=== PATIENT | male | born 1955 | race Caucasian/White ===

== ENCOUNTER 2017-09-15 08:00 | Day surgery (SDC) | payer OTHER ==
[2017-09-11 13:42] VITALS: BMI 31.3
[2017-09-15 08:29] VITALS: TEMP 97.1
[2017-09-15] MEDS: LACTATED RINGERS 1,000 ML IV SCH ×2 (08:34→08:38)
[2017-09-15] MEDS ORDERED: LIDOCAINE 1% 20 ML VIAL (10MG/ML) FOR IV START INTRADERMA ONE (08:38)
[2017-09-15] MEDS ORDERED: PROPOFOL 10 MG/ML 20 ML VIAL IV ONE (08:39)
[2017-09-15] MEDS ORDERED: LIDOCAINE 1% INJ 10MG/ML (20 ML MDV) ONE (08:39)
[2017-09-15 08:40] LABS: Glucose,Whole Blood 114 mg/dL (75-99)
--- NOTE | 2017-09-15 09:02 | P.PCN ---
Date of Procedure: 09/15/17 Procedure(s) Performed: Procedure: Esophagogastroduodenoscopy and biopsy. Preoperative diagnosis: Dysphagia. Postoperative diagnosis: 1. No obvious hiatal hernia or any evidence of esophagitis or complicated reflux disease. 2. Mild gastritis and minimal duodenitis. 3. Multiple biopsies obtained from the duodenum, antrum and esophagus. Preparation sedation: Was provided by anesthesia. Brief clinical history: The patient is a 61-year-old male who I have evaluated in the office regarding esophageal dysphagia that has been going on for sometime. He describes difficulties with solid and dry food that is not progressive. This had been going on for a long time. Denied reflux symptoms. He, apparently, lost 20 pounds over the last year or so. This evaluation is to assess for esophagitis or complicated reflux disease. Procedure: With the patient on his left lateral decubitus position and after informed consent and adequate sedation, I passed the Olympus-GIF 160 video upper endoscope through the cricopharyngeus down the esophagus. GE junction was around 43 cm from the incisors and there was no definite hiatal hernia. The esophagus did not show any obvious esophagitis or any strictures or [place]' s esophagus. The endoscope was then passed into the stomach which was insufflated with air and inspected in detail including the retroflex view in the cardia. There was some mottling and erythema in the antrum and few scattered small erosions but no ulcers. Pyloric channel did not show any ulcers. Duodenal bulb, post bulbar area and descending duodenum showed minimal erythema. I obtained biopsies from the duodenum, antrum and esophagus then the endoscope was withdrawn. The patient tolerated the procedure well. Plan: The patient was reassured. Will await biopsy results. It is possible that this could be dysphagia secondary to motility disorder. We could consider further evaluation based on his course and especially if there is nutritional compromise. He will follow up with you as planned and will keep you updated on his progress.
[2017-09-15 10:31] VITALS: BP 120/78
[2017-09-15 11:36] VITALS: RESP 16
[2017-09-15 11:48] VITALS: PULSE 83
== END 2017-09-15 14:35 | disposition home or self-care (01) ==
LOC: ORWHC2ENDO 08:00
DX: K29.70 Gastritis, unspecified, without bleeding (principal); K29.80 Duodenitis without bleeding; E11.9 Type 2 diabetes mellitus without complications; E78.5 Hyperlipidemia, unspecified; I10 Essential (primary) hypertension; M19.90 Unspecified osteoarthritis, unspecified site; G47.33 Obstructive sleep apnea (adult) (pediatric); J44.9 Chronic obstructive pulmonary disease, unspecified; F41.9 Anxiety disorder, unspecified; F17.200 Nicotine dependence, unspecified, uncomplicated; Z99.81 Dependence on supplemental oxygen; Z88.0 Allergy status to penicillin; Z79.84 Long term (current) use of oral hypoglycemic drugs; Z79.899 Other long term (current) drug therapy
CPT/HCPCS: 43239; 88305; 88342; J2001; J2704

== ENCOUNTER 2019-05-22 00:14 | Emergency (ER) | payer MEDICARE ==
--- NOTE | 2019-05-22 00:35 | ED ---
Extremity Problem HPI - General Chief complaint: Extremity Problem,Nontraumatic Stated complaint: Infection Rt Elbow Time Seen by Provider: 05/22/19 00:28 Source: patient, RN notes reviewed, old records reviewed Mode of arrival: wheelchair Limitations: no limitations - History of Present Illness Initial comments: This is a 63-year-old male the ER for evaluation. Patient does say for evaluation of right elbow swelling and pain. Significant swelling of right elbow. Patient states he has history of this, both elbows are significantly swollen at all times, he does have abrasions to right elbow. Patient denies fever or redness of arm. Patient denies any other complaints. MD Complaint: extremity pain, extremity swelling, joint pain (Right elbow pain and swelling) -: hour(s) Location: right, elbow History of Same: Yes Severity scale (1-10): 7 Quality: aching Consistency: constant Improves with: nothing Worsens with: nothing Associated Symptoms: denies other symptoms - Related Data Home Medications Medication Instructions Recorded Confirmed Atorvastatin [Lipitor] 80 mg PO HS 09/11/17 05/22/19 Citalopram Hydrobromide [CeleXA] 20 mg PO DAILY 09/11/17 05/22/19 Furosemide [Lasix] 20 mg PO DAILY 09/11/17 05/22/19 Lisinopril [Zestril] 2.5 mg PO DAILY 09/11/17 05/22/19 metFORMIN HCL [Glucophage] 500 mg PO BID 09/11/17 05/22/19 Allergies Allergy/AdvReac Type Severity Reaction Status Date / Time Penicillins Allergy Anaphylaxis Verified 09/15/17 08:10 Review of Systems ROS Statement: Those systems with pertinent positive or pertinent negative responses have been documented in the HPI. ROS Other: All systems not noted in ROS Statement are negative. Past Medical History Past Medical History: COPD, Diabetes Mellitus, Hyperlipidemia, Hypertension, Osteoarthritis (OA), Sleep Apnea/CPAP/BIPAP Additional Past Medical History / Comment(s): C PAP, BLOOD IN STOOL ,RETAINS FLUID IN AM OF PROCEDURE History of Any Multi-Drug Resistant Organisms: None Reported Past Surgical History: Appendectomy Additional Past Surgical History / Comment(s): CATARACT SURGERY WITH LENS IMPLANT-BILATERAL,EXPLORATORY LAPAROTOMY,AORTIC ANEURYSM REPAIR Past Anesthesia/Blood Transfusion Reactions: No Reported Reaction Past Psychological History: Anxiety Smoking Status: Current every day smoker Past Alcohol Use History: None Reported Past Drug Use History: Marijuana - Past Family History Mother Family Medical History: Cancer Additional Family Medical History / Comment(s): LUNG CANCER Father Family Medical History: Cancer Additional Family Medical History / Comment(s): LUNG CANCER General Exam Limitations: no limitations Course Vital Signs 05/22/19 00:19 Temperature 98.1 F Pulse Rate 87 Respiratory 20 Rate Blood Pressure 117/65 O2 Sat by Pulse 85 L Oximetry - Reevaluation(s) Reevaluation #1: 05/22/19 01:02 Medical record reviewed Reevaluation #2: 05/22/19 01:02 Bursa is drained Without incident Procedures - Bursa Procedures Consent Obtained: verbal consent Indications: R/O septic bursitis, R/O gouty bursitis, aspiration/injection Side of Body: right Site of Procedure: olecranon bursa XRAY Obtained: none Antisepsis Used: Povidone-Iodine1% Fluid Type: clear, cloudy Lidocaine Added to Medication: No Patient Tolerated Procedure: well Complications: none Medical Decision Making - Medical Decision Making 63 male the ER for evaluation significant right upper and bursitis bursitis is drained here in the ER, patient will be placed on antibiotics prophylactically, we'll obtain cultures of elbow aspirate fluid. Patient follow-up with Dr. Bush in for further management Disposition Clinical Impression: Olecranon bursitis, right elbow Disposition: HOME SELF-CARE Condition: Good Instructions (If sedation given, give patient instructions): Elbow Bursitis (ED) Is patient prescribed a controlled substance at d/c from ED?: No Referrals: Tenzin Beltrán MD [Primary Care Provider] - 1-2 days
[2019-05-22] MEDS ORDERED: SULFAMETHOX-TMP 800-160MG 1 EACH TAB PO STA (01:00)
[2019-05-22] MEDS ORDERED: CEPHALEXIN 500MG STARTER PACK 4 CAP BTL PO STA (01:00)
[2019-05-22] MEDS ORDERED: CEPHALEXIN 500 MG CAP PO STA (01:00)
[2019-05-22] MEDS ORDERED: SULFAMETH-TMP DS STARTER PACK 2 TAB BTL PO STA (01:00)
[2019-05-22] MEDS: IPRATROPIUM-ALBUTEROL 3 ML NEB INHALATION STA ×2 (01:21→10:41)
[2019-05-22 01:24] VITALS: PULSE 92
[2019-05-22 01:40] VITALS: BP 128/70; RESP 18; TEMP 98.3
[2019-05-22 02:07] LABS: Color,BF Yellow
[2019-05-22 02:08] LABS: Appearance,BF Cloudy; RBC, Body Fluid 2365 /uL
[2019-05-22 02:09] LABS: Nucleated Cells, Body Fluid 1720 /uL
[2019-05-22 02:19] LABS: Mononuclear WBC,Body Fluid 1 %; Polynuclear WBC,Body Fluid 99 %; Total Cells Counted,Body Fluid 100
== END 2019-05-22 01:40 | disposition home or self-care (01) ==
LOC: EC 00:14
DX: M70.21 Olecranon bursitis, right elbow (principal); E11.9 Type 2 diabetes mellitus without complications; E78.5 Hyperlipidemia, unspecified; I10 Essential (primary) hypertension; G47.30 Sleep apnea, unspecified; F41.9 Anxiety disorder, unspecified; F17.200 Nicotine dependence, unspecified, uncomplicated; Z79.84 Long term (current) use of oral hypoglycemic drugs; Z79.899 Other long term (current) drug therapy; Z88.0 Allergy status to penicillin
CPT/HCPCS: 20605; 87070; 87205; 89050; 94640; 99284

== ENCOUNTER 2019-05-22 09:47 | Inpatient (IN) | payer MEDICARE, BC ==
[2019-05-22] MEDS ORDERED: SODIUM CHLORIDE 0.9% 500 ML IV STA (10:13)
[2019-05-22] MEDS ORDERED: DEXAMETHASONE SOD PHOSPHATE 10 MG/ML 1 ML VIAL IV STA (10:14)
[2019-05-22] MEDS ORDERED: IPRATROPIUM-ALBUTEROL 3 ML NEB INHALATION STA (10:14)
--- NOTE | 2019-05-22 10:16 | ED ---
General Adult HPI - General Chief complaint: Fall Stated complaint: Fell Time Seen by Provider: 05/22/19 09:49 Source: patient, EMS Mode of arrival: EMS Limitations: no limitations - History of Present Illness Initial comments: Dictation was produced using [employer] dictation software. please excuse any grammatical, word or spelling errors. Chief Complaint: 63-year-old male found on the bathroom down today. History of Present Illness: 63-year-old male he has past medical history of COPD diabetes and heart failure. He is blind by EMS today for fluid in the bathroom. Patient was recently seen in the emergency department for inflamed bursa to the right elbow. Bursa was aspirated and sent for evaluation. Patient reports that upon leaving the emergency department he started to feel some chills. By time he got home he felt cold started putting on winter clothes. Patient remembers falling. Denies loss of consciousness however was unwitnessed. Patient reports shortness of breath. EMS reports that patient is hypoxic. Patient uses oxygen therapy at home. Does have a history of COPD and heart failure. Denies any cough. Denies any chest pain. The ROS documented in this emergency department record has been reviewed and confirmed by me. Those systems with pertinent positive or negative responses have been documented in the HPI. All other systems are other negative and/or noncontributory. PHYSICAL EXAM: General Impression: Alert and oriented x3, dyspneic HEENT: Normocephalic atraumatic, extra-ocular movements intact, pupils equal and reactive to light bilaterally, dry mucous membranes Cardiovascular: Heart regular rate and rhythm, S1&S2 audible, no murmurs, rubs or gallops Chest: Diffuse lung crackles Abdomen: Bowel sounds present, abdomen soft, non-tender, non-distended, no organomegaly Musculoskeletal: Pulses present and equal in all extremities, no peripheral edema Motor: no focal deficits noted Neurological: CN II-XII grossly intact, no focal motor or sensory deficits noted Skin: Intact with no visualized rashes, right elbow bandages clean dry and intact Psych: Normal affect and mood ED course: 63-year-old male presents with dyspnea and fall today. Vital signs upon arrival shows heart rate 131, 92% on 15 L nonrebreather, blood pressure 105 a 57, temperature 99.1. Laboratory evaluation obtained. CBC unremarkable. No leukocytosis. Coag panel unremarkable. Metabolic panel shows lactic acidosis 2.9. No Acidosis. Troponin 0.021 with a brain natruretic peptide of 2290. Patient doesn't have any old labs for comparison. Urinalysis shows 30 white blood cells. Repeat vi laney signs shows persistent tachycardia in the 150s. He still mildly hypoxic. At this point there multiple sources of possible infection including infected bursa, urine and even pulmonary. Clinical presentation consistent with sepsis. Discussed patient case Dr. Beltrán who is willing to accept patients care. Patient given broad-spectrum antibiotics. Patient also had a fall episode earlier today. No joint injuries noted. CT brain and C-spine is unremarkable. Plain films are negative. EKG interpretation: Ventricular rate 129, sinus tachycardia, IL interval 16, QS 136, QTC 427. No IL prolongation, no QTC prolongation, no ST or T-wave changes noted. No old EKG for comparison, right bundle branch block - Related Data Home Medications Medication Instructions Recorded Confirmed Atorvastatin [Lipitor] 80 mg PO HS 09/11/17 05/22/19 Furosemide [Lasix] 20 mg PO DAILY 09/11/17 05/22/19 Lisinopril [Zestril] 2.5 mg PO DAILY 09/11/17 05/22/19 metFORMIN HCL [Glucophage] 500 mg PO BID 09/11/17 05/22/19 Albuterol Inhaler [Ventolin Hfa 2 puff INHALATION RT-Q6H PRN 05/22/19 05/22/19 Inhaler] Aspirin EC [Ecotrin] 325 mg PO DAILY 05/22/19 05/22/19 Tiotropium [place] [Spiriva] 1 cap INHALATION RT-DAILY 05/22/19 05/22/19 Allergies Allergy/AdvReac Type Severity Reaction Status Date / Time Penicillins Allergy Anaphylaxis Verified 05/22/19 10:19 Review of Systems ROS Statement: Those systems with pertinent positive or pertinent negative responses have been documented in the HPI. ROS Other: All systems not noted in ROS Statement are negative. Past Medical History Past Medical History: COPD, Diabetes Mellitus, Hyperlipidemia, Hypertension, Osteoarthritis (OA), Sleep Apnea/CPAP/BIPAP Additional Past Medical History / Comment(s): C PAP, BLOOD IN STOOL ,RETAINS FLUID IN AM OF PROCEDURE History of Any Multi-Drug Resistant Organisms: None Reported Past Surgical History: Appendectomy Additional Past Surgical History / Comment(s): CATARACT SURGERY WITH LENS IMPLANT-BILATERAL,EXPLORATORY LAPAROTOMY,AORTIC ANEURYSM REPAIR Past Anesthesia/Blood Transfusion Reactions: No Reported Reaction Past Psychological History: Anxiety Smoking Status: Current every day smoker Past Alcohol Use History: None Reported Past Drug Use History: Marijuana - Past Family History Mother Family Medical History: Cancer Additional Family Medical History / Comment(s): LUNG CANCER Father Family Medical History: Cancer Additional Family Medical History / Comment(s): LUNG CANCER General Exam Limitations: no limitations Course Vital Signs 05/22/19 05/22/19 05/22/19 09:49 10:27 10:42 Temperature 99.1 F 102.5 F H Pulse Rate 131 H Respiratory 21 Rate Blood Pressure 105/57 O2 Sat by Pulse 92 L 93 L Oximetry 05/22/19 05/22/19 05/22/19 10:43 10:56 12:21 Temperature Pulse Rate 120 H 124 H 115 H Respiratory 21 Rate Blood Pressure 119/72 O2 Sat by Pulse 91 L Oximetry Medical Decision Making - Lab Data Result diagrams: 05/22/19 10:12 05/22/19 10:12 Lab Results 05/22/19 05/22/19 05/22/19 Range/Units 10:12 10:12 10:12 WBC 9.7 (3.8-10.6) k/uL RBC 5.49 (4.30-5.90) m/uL Hgb 15.5 (13.0-17.5) gm/dL Hct 47.1 (39.0-53.0) % MCV 85.8 (80.0-100.0) fL MCH 28.2 (25.0-35.0) pg MCHC 32.8 (31.0-37.0) g/dL RDW 16.5 H (11.5-15.5) % Plt Count 181 (150-450) k/uL Neutrophils % 89 % Lymphocytes % 4 % Monocytes % 5 % Eosinophils % 1 % Basophils % 0 % Neutrophils # 8.6 H (1.3-7.7) k/uL Lymphocytes # 0.4 L (1.0-4.8) k/uL Monocytes # 0.5 (0-1.0) k/uL Eosinophils # 0.1 (0-0.7) k/uL Basophils # 0.0 (0-0.2) k/uL Anisocytosis Slight PT (9.0-12.0) sec INR (<1.2) Sodium 139 (137-145) mmol/L Potassium 4.3 (3.5-5.1) mmol/L Chloride 101 (98-107) mmol/L Carbon Dioxide 29 (22-30) mmol/L Anion Gap 9 mmol/L BUN 19 (9-20) mg/dL Creatinine 0.96 (0.66-1.25) mg/dL Est GFR (CKD-EPI)AfAm >90 (>60 ml/min/1.73 sqM) Est GFR (CKD-EPI)NonAf 83 (>60 ml/min/1.73 sqM) Glucose 154 H (74-99) mg/dL Plasma Lactic Acid Raza 2.9 H* (0.7-2.0) mmol/L Calcium 9.2 (8.4-10.2) mg/dL Magnesium 1.6 (1.6-2.3) mg/dL Total Bilirubin 1.1 (0.2-1.3) mg/dL AST 24 (17-59) U/L ALT 8 L (21-72) U/L Alkaline Phosphatase 63 (38-126) U/L Troponin I (0.000-0.034) ng/mL NT-Pro-B Natriuret Pep pg/mL Total Protein 7.9 (6.3-8.2) g/dL Albumin 4.2 (3.5-5.0) g/dL Urine Color Urine Appearance (Clear) Urine pH (5.0-8.0) Ur Specific Post (1.001-1.035) Urine Protein (Negative) Urine Glucose (UA) (Negative) Urine Ketones (Negative) Urine Blood (Negative) Urine Nitrite (Negative) Urine Bilirubin (Negative) Urine Urobilinogen (<2.0) mg/dL Ur Leukocyte Esterase (Negative) Urine RBC (0-5) /hpf Urine WBC (0-5) /hpf Ur Squamous Epith Cells (0-4) /hpf Hyaline Casts (0-2) /lpf Urine Mucus (None) /hpf 05/22/19 05/22/19 05/22/19 Range/Units 10:12 10:12 10:12 WBC (3.8-10.6) k/uL RBC (4.30-5.90) m/uL Hgb (13.0-17.5) gm/dL Hct (39.0-53.0) % MCV (80.0-100.0) fL MCH (25.0-35.0) pg MCHC (31.0-37.0) g/dL RDW (11.5-15.5) % Plt Count (150-450) k/uL Neutrophils % % Lymphocytes % % Monocytes % % Eosinophils % % Basophils % % Neutrophils # (1.3-7.7) k/uL Lymphocytes # (1.0-4.8) k/uL Monocytes # (0-1.0) k/uL Eosinophils # (0-0.7) k/uL Basophils # (0-0.2) k/uL Anisocytosis PT 11.8 (9.0-12.0) sec INR 1.1 (<1.2) Sodium (137-145) mmol/L Potassium (3.5-5.1) mmol/L Chloride (98-107) mmol/L Carbon Dioxide (22-30) mmol/L Anion Gap mmol/L BUN (9-20) mg/dL Creatinine (0.66-1.25) mg/dL Est GFR (CKD-EPI)AfAm (>60 ml/min/1.73 sqM) Est GFR (CKD-EPI)NonAf (>60 ml/min/1.73 sqM) Glucose (74-99) mg/dL Plasma Lactic Acid Raza (0.7-2.0) mmol/L Calcium (8.4-10.2) mg/dL Magnesium (1.6-2.3) mg/dL Total Bilirubin (0.2-1.3) mg/dL AST (17-59) U/L ALT (21-72) U/L Alkaline Phosphatase (38-126) U/L Troponin I 0.021 (0.000-0.034) ng/mL NT-Pro-B Natriuret Pep 2290 pg/mL Total Protein (6.3-8.2) g/dL Albumin (3.5-5.0) g/dL Urine Color Urine Appearance (Clear) Urine pH (5.0-8.0) Ur Specific Post (1.001-1.035) Urine Protein (Negative) Urine Glucose (UA) (Negative) Urine Ketones (Negative) Urine Blood (Negative) Urine Nitrite (Negative) Urine Bilirubin (Negative) Urine Urobilinogen (<2.0) mg/dL Ur Leukocyte Esterase (Negative) Urine RBC (0-5) /hpf Urine WBC (0-5) /hpf Ur Squamous Epith Cells (0-4) /hpf Hyaline Casts (0-2) /lpf Urine Mucus (None) /hpf 05/22/19 Range/Units 10:35 WBC (3.8-10.6) k/uL RBC (4.30-5.90) m/uL Hgb (13.0-17.5) gm/dL Hct (39.0-53.0) % MCV (80.0-100.0) fL MCH (25.0-35.0) pg MCHC (31.0-37.0) g/dL RDW (11.5-15.5) % Plt Count (150-450) k/uL Neutrophils % % Lymphocytes % % Monocytes % % Eosinophils % % Basophils % % Neutrophils # (1.3-7.7) k/uL Lymphocytes # (1.0-4.8) k/uL Monocytes # (0-1.0) k/uL Eosinophils # (0-0.7) k/uL Basophils # (0-0.2) k/uL Anisocytosis PT (9.0-12.0) sec INR (<1.2) Sodium (137-145) mmol/L Potassium (3.5-5.1) mmol/L Chloride (98-107) mmol/L Carbon Dioxide (22-30) mmol/L Anion Gap mmol/L BUN (9-20) mg/dL Creatinine (0.66-1.25) mg/dL Est GFR (CKD-EPI)AfAm (>60 ml/min/1.73 sqM) Est GFR (CKD-EPI)NonAf (>60 ml/min/1.73 sqM) Glucose (74-99) mg/dL Plasma Lactic Acid Raza (0.7-2.0) mmol/L Calcium (8.4-10.2) mg/dL Magnesium (1.6-2.3) mg/dL Total Bilirubin (0.2-1.3) mg/dL AST (17-59) U/L ALT (21-72) U/L Alkaline Phosphatase (38-126) U/L Troponin I (0.000-0.034) ng/mL NT-Pro-B Natriuret Pep pg/mL Total Protein (6.3-8.2) g/dL Albumin (3.5-5.0) g/dL Urine Color Light Red Urine Appearance Cloudy (Clear) Urine pH 6.5 (5.0-8.0) Ur Specific Post 1.024 (1.001-1.035) Urine Protein 1+ H (Negative) Urine Glucose (UA) Negative (Negative) Urine Ketones Negative (Negative) Urine Blood Large H (Negative) Urine Nitrite Negative (Negative) Urine Bilirubin Negative (Negative) Urine Urobilinogen 2.0 (<2.0) mg/dL Ur Leukocyte Esterase Negative (Negative) Urine RBC >182 H (0-5) /hpf Urine WBC 30 H (0-5) /hpf Ur Squamous Epith Cells 1 (0-4) /hpf Hyaline Casts 6 H (0-2) /lpf Urine Mucus Occasional H (None) /hpf Disposition Clinical Impression: Fall, Sepsis Disposition: ADMITTED IP TO THIS HOSP Condition: Critical Referrals: Tenzin Beltrán MD [Primary Care Provider] - 1-2 days Decision Time: 13:02
[2019-05-22 10:31] LABS: Anisocytosis Slight; Basophils % (A) 0 %; Eosinophils # (A) 0.1 k/uL (0-0.7); Eosinophils % (A) 1 %; HCT 47.1 % (39.0-53.0); HGB 15.5 gm/dL (13.0-17.5); Lymphocytes # (A) 0.4 k/uL (1.0-4.8); Lymphocytes % (A) 4 %; MCH 28.2 pg (25.0-35.0); MCHC 32.8 g/dL (31.0-37.0); MCV 85.8 fL (80.0-100.0); Mean Platelet Volume 6.4; Monocytes # (A) 0.5 k/uL (0-1.0); Monocytes % (A) 5 %; Neutrophils # (A) 8.6 k/uL (1.3-7.7); Neutrophils % (A) 89 %; Platelet Count 181 k/uL (150-450); RBC 5.49 m/uL (4.30-5.90); RDW 16.5 % (11.5-15.5); WBC 9.7 k/uL (3.8-10.6)
[2019-05-22 10:36] LABS: ALT 8 U/L (21-72); AST 24 U/L (17-59); African American GFR (CKD) >90 (>60 ml/min/1.73 sqM); Albumin 4.2 g/dL (3.5-5.0); Alkaline Phosphatase 63 U/L (38-126); Anion Gap 9 mmol/L; Blood Urea Nitrogen 19 mg/dL (9-20); Calcium 9.2 mg/dL (8.4-10.2); Carbon Dioxide 29 mmol/L (22-30); Chloride 101 mmol/L (98-107); Glucose 154 mg/dL (74-99); INR 1.1 (<1.2); Magnesium 1.6 mg/dL (1.6-2.3); Non-African American GFR(CKD) 83 (>60 ml/min/1.73 sqM); Potassium 4.3 mmol/L (3.5-5.1); Prothrombin Time 11.8 sec (9.0-12.0); Sodium 139 mmol/L (137-145); Total Bilirubin 1.1 mg/dL (0.2-1.3); Total Protein 7.9 g/dL (6.3-8.2)
[2019-05-22] MEDS ORDERED: CEFEPIME 2 GM in SODIUM CHLORIDE 0.9% 100 ML IVPB STA (10:43)
[2019-05-22] MEDS ORDERED: VANCOMYCIN IV PER PHARMACY 1 EACH MISC MISCELLANE PRN (10:43)
[2019-05-22] MEDS ORDERED: VANCOMYCIN 1,500 MG in SODIUM CHLORIDE 0.9% 250 ML IVPB STA (10:48)
[2019-05-22 10:49] LABS: Appearance,Urine Cloudy (Clear); Bilirubin,Urine Negative (Negative); Blood,Urine Large (Negative); Color,Urine Light Red; Glucose,Urine (UA) Negative (Negative); Hyaline Casts,Urine 6 /lpf (0-2); Ketones,Urine Negative (Negative); Leukocyte Esterase,Urine Negative (Negative); Mucus,Urine Occasional /hpf; Nitrite,Urine Negative (Negative); PH, Urine 6.5 (5.0-8.0); Protein,Urine 1+ (Negative); RBC,Urine >182 /hpf (0-5); Specific Gravity,Urine 1.024 (1.001-1.035); Squamous Epithelial Cell,Urine 1 /hpf (0-4); WBC,Urine 30 /hpf (0-5)
[2019-05-22] MEDS ORDERED: ACETAMINOPHEN TAB 500 MG TAB PO STA (10:52)
--- NOTE | 2019-05-22 11:42 | CT ---
EXAMINATION TYPE: CT brain senia mcdaniels DATE OF EXAM: 05/22/2019 COMPARISON: NONE HISTORY: Fall CT DLP: 1442.8 mGycm Automated exposure control for dose reduction was used. TECHNIQUE: CT scan of the head and cervical spine are performed without contrast. FINDINGS: BRAIN: Central structures are midline. There is no evidence of hydrocephalus. No acute focal lesion, mass effect or midline shift is seen. I do not see evidence of intracranial blood. There is some mild periventricular white matter change compatible with chronic ischemic change. Visualized portions of the paranasal sinuses and mastoids are clear. The bony calvarium is intact. IMPRESSION: 1. NO ACUTE INTRACRANIAL ABNORMALITY. 2. MILD DEGENERATIVE CHANGE. CERVICAL SPINE: There are changes of bullous emphysema within the visualized portions of the lungs. The proximal arch is aneurysmal measuring 3.5 cm. The proximal descending thoracic aorta is also aneu rysmal measuring 3.6 cm. Prevertebral soft tissues are otherwise unremarkable. There is a minimal retrograde listhesis of C4 on C5. Alignment is otherwise normal. Atlantoaxial rela tionships are normal. There is degenerative disc disease and hypertrophic spondylosis at C5-6 and C6- 7. There is facet arthropathy on the left at C3-4. There is uncovertebral joint disease present at C3 -4. No definite protrusion is seen there is intervertebral foraminal narrowing on the left at C3-4 an d on the right at C5-6 and C6-7. No fractures are seen. IMPRESSION: 1. NO ACUTE OSSEOUS LESION. 2. DEGENERATIVE CHANGE. 3. INTERVERTEBRAL FORAMINAL NARROWING.
--- NOTE | 2019-05-22 11:43 | XR ---
EXAMINATION TYPE: XR chest 2V DATE OF EXAM: 05/22/2019 HISTORY: Pain. REFERENCE: None. FINDINGS: The lungs are overinflated. The heart is not enlarged. There are increased markings through out the chest which likely chronic. I do not see evidence of superimposed pneumonia or edema. IMPRESSION: COPD.
[2019-05-22] MEDS: SODIUM CHLORIDE 0.9% 1,000 ML IV SCH (13:28)
[2019-05-22] MEDS ORDERED: ALBUTEROL NEBULIZED 2.5 MG/3 ML INHALATION PRN (14:42)
--- NOTE | 2019-05-22 15:31 | HP ---
HISTORY AND PHYSICAL CHIEF COMPLAINT: Weakness and falling. HISTORY OF PRESENT ILLNESS: This is another admission for this 63-year-old white male. He came in disheveled. He has been in the office in the past for depression, hypertension and CHF. He was out of insurance so has not been coming in. He has been taking no medications. He came to the emergency room with an infection in the right elbow and was treated and released. It was probably an olecranon bursitis. He denies any focal neurologic deficits, syncope, chest pain, orthopnea, PND, etc. In the emergency room his laboratory studies revealed a white count of 16,500. Temperature was 102.5. Lactic acid was 2.9. BNP was 2200. REVIEW OF SYSTEMS: He denies any other complaints such as cough, chest pain, hemoptysis, sputum production, abdominal pain, nausea, vomiting, hematemesis, melena, hematochezia, jaundice, liver disease, renal failure, dysuria, frequency, nocturia, incontinence, diabetes, etc. Past medical history, family history, and personal and social histories reveal he is ALLERGIC TO PENICILLIN. He has not been on any medications. He does not smoke or drink by history. PHYSICAL EXAMINATION: Blood pressure 105/57 with a pulse of 124 and regular, respirations of 36 and temperature 102.5. In general he appeared to be dehydrated and disheveled. Lymph nodes were not enlarged. Head, ears, eyes, nose, mouth and throat were normal. Neck veins were not distended. Carotids were normal. Chest demonstrated scattered rales. Cardiac exam demonstrated sinus tachycardia with no murmurs or extra sounds. Abdomen was soft, nontender. Extremities were normal with minimal edema. Neurologically he was intact. IMPRESSION: 1. Bacterial septicemia secondary to olecranon bursitis of the right elbow. 2. Congestive heart failure. 3. Probable urinary tract infection. 4. Hematuria. 5. Depression. PLAN: 1. Bed rest. 2. IV fluids. 3. IV antibiotics. 4. Cultures. 5. Infectious Disease. 6. Start him back on Celexa 40 mg a day. 7. Echocardiogram. 8. Evaluate for hematuria. MMODL / IJN: [id number] /
[2019-05-22] MEDS: CITALOPRAM HYDROBROMIDE 20 MG TAB PO SCH (16:27)
[2019-05-22 17:15] LABS: Glucose,Whole Blood 298 mg/dL (75-99)
[2019-05-22] MEDS: INSULIN ASPART (NovoLOG) 100 UNIT/ML VIAL SQ SCH ×2 (17:50→21:02)
[2019-05-22] MEDS: VANCOMYCIN 1,500 MG in SODIUM CHLORIDE 0.9% 250 ML IVPB SCH (20:13)
[2019-05-22 20:50] LABS: Glucose,Whole Blood 204 mg/dL (75-99)
[2019-05-23] MEDS: SODIUM CHLORIDE 0.9% 1,000 ML IV SCH ×2 (05:21→17:46)
[2019-05-23 06:15] LABS: Glucose,Whole Blood 125 mg/dL (75-99)
[2019-05-23] MEDS: INSULIN ASPART (NovoLOG) 100 UNIT/ML VIAL SQ SCH ×4 (06:24→21:54)
[2019-05-23] MEDS: IPRATROPIUM 0.5 MG/2.5 ML NEBU INHALATION SCH ×4 (06:25→19:54)
[2019-05-23 07:15] LABS: African American GFR (CKD) >90 (>60 ml/min/1.73 sqM); Non-African American GFR(CKD) >90 (>60 ml/min/1.73 sqM)
[2019-05-23] MEDS: PANTOPRAZOLE 40 MG/10 ML VIAL IV SCH (08:33)
[2019-05-23] MEDS: CITALOPRAM HYDROBROMIDE 20 MG TAB PO SCH (08:33)
[2019-05-23] MEDS: LISINOPRIL 2.5 MG TAB PO SCH (08:33)
[2019-05-23] MEDS: VANCOMYCIN 1,500 MG in SODIUM CHLORIDE 0.9% 250 ML IVPB SCH ×2 (08:33→20:40)
[2019-05-23] MEDS: ASPIRIN 325 MG TAB PO SCH (08:33)
[2019-05-23] MEDS ORDERED: FUROSEMIDE 20 MG TAB PO SCH (09:00)
--- NOTE | 2019-05-23 12:01 | CONS ---
CONSULTATION Rajesh is a 63-year-old gentleman with history of diabetes, hypertension, dyslipidemia and COPD who is very noncompliant with his medications and has not been taking his Lasix or lisinopril for a while, came into hospital with infection involving the right elbow that was treated. He went home and apparently passed out at home and came back and his primary symptom was feeling weak, fatigued, tired. On his initial presentation, lactic acid was 2.9. BNP was elevated. His T-max was 102.5 and white cell count was elevated. I am consulted because of elevated BNP, which could be due to acute exacerbation of chronic diastolic heart failure or could be related to the underlying sepsis. He is currently on Lasix 20 mg daily. I am going to increase it to 20 mg IV b.i.d. I am also going to obtain a 2D echo to document his LV function. PAST MEDICAL HISTORY: Significant for COPD, [id number] diabetes, dyslipidemia. MEDICATIONS: Medications at home included Spiriva, aspirin, Ventolin, Glucophage, Zestril, Lasix, and Lipitor. ALLERGIC: ALLERGIC TO PENICILLIN. FAMILY HISTORY: Negative for premature coronary artery disease. SOCIAL HISTORY: Negative for smoking, ETOH abuse or drug abuse. REVIEW OF SYSTEMS: HEENT is unremarkable. CARDIAC as described above. RESPIRATORY negative. GI negative. Genitourinary negative. ALLERGY/IMMUNOLOGY: Negative. MUSCULOSKELETAL: Significant for arthritis. PSYCHOSOCIAL: Negative. ENDOCRINE: Negative. HEMATOLOGICAL: Negative. DERM: Negative. CONSTITUTIONAL: Negative. ONCOLOGICAL: Negative. Rest of the system review is not relevant. PHYSICAL EXAM: Comfortable at rest. Afebrile. Heart rate is 60 beats per minute. Blood pressure 117/59. Respirations 18. Chest exam reveals good air entry bilaterally. Heart exam reveals first and second heart sounds. No gallop. No murmur. Abdomen is soft. Exam of extremities reveals bilateral 1+ pitting edema. LAB: Showed that the hemoglobin is 15.5, platelet count is 181. BNP is elevated at 2290. Potassium is 4.3. EKG shows sinus rhythm with right bundle branch block. ASSESSMENT: 1. Acute exacerbation of chronic diastolic heart failure. 2. [id number] diabetes. 3. Chronic obstructive pulmonary disease. PLAN: I will treat the patient with Lasix. Continue the aspirin, insulin, Zestril that he is currently on. Obtain a 2D echo. MMODL / IJN: [id number] /
[2019-05-23 12:20] LABS: Glucose,Whole Blood 72 mg/dL (75-99)
--- NOTE | 2019-05-23 13:26 | P.CNOR ---
History of Present Illness - [facility] Consult date: 05/23/19 Consult reason: other History of present illness: Patient is a 63-year-old male who was recently admitted to [facility] with regards to possible exacerbation of CHF, sepsis, possible UTI and infection on the right elbow. He is on the cardiac stepdown unit at this time, he has multiple medical providers following him. We were consult in with regards to possible infection involving the right elbow. Patient was in the hospital early yesterday morning, they have performed an aspiration of the right olecranon bursa, he was sent home on oral antibiotics and cultures were sent of the fluid involving the right elbow. Patient returned later that evening with regards to chills and feeling of w eakness, he then was admitted under internal medicine for further workup. Patient was examined today at bedside, he is resting comfortably in chair. He notes minimal discomfort of the right elbow. Much improvement since his initial aspiration that was done yesterday. He still notes significant swelling in the area, also a scab present over the olecranon bursa. Currently patient denies any fevers or chills. Patient has no other orthopedic complaints time. Denies any previous surgery involving the right upper extremity. Cultures/Gram stain was reviewed from initial aspiration on 05/22/2019. Current reading states possible staph aureus. Review of Systems Constitutional: Reports as per HPI Past Medical History Past Medical History: COPD, Diabetes Mellitus, Hyperlipidemia, Hypertension, Osteoarthritis (OA), Sleep Apnea/CPAP/BIPAP Additional Past Medical History / Comment(s): C PAP, BLOOD IN STOOL ,RETAINS FLUID IN AM OF PROCEDURE History of Any Multi-Drug Resistant Organisms: None Reported Past Surgical History: Appendectomy Additional Past Surgical History / Comment(s): CATARACT SURGERY WITH LENS I MPLANT-BILATERAL,EXPLORATORY LAPAROTOMY,AORTIC ANEURYSM REPAIR Past Anesthesia/Blood Transfusion Reactions: No Reported Reaction Past Psychological History: Anxiety Smoking Status: Current every day smoker Past Alcohol Use History: None Reported Additional Past Alcohol Use History / Comment(s): STARTED SMOKING AT AGE 17 SMOKES 1PPD Past Drug Use History: Marijuana Additional Drug Use History / Comment(s): QUIT MARIJUANA DECEMBER 2016 - Past Family History Mother Family Medical History: Cancer Additional Family Medical History / Comment(s): LUNG CANCER Father Family Medical History: Cancer Additional Family Medical History / Comment(s): LUNG CANCER Medications and Allergies Home Medications Medication Instructions Recorded Confirmed Type Atorvastatin [Lipitor] 80 mg PO HS 09/11/17 05/22/19 History Furosemide [Lasix] 20 mg PO DAILY 09/11/17 05/22/19 History Lisinopril [Zestril] 2.5 mg PO DAILY 09/11/17 05/22/19 History metFORMIN HCL [Glucophage] 500 mg PO BID 09/11/17 05/22/19 History Albuterol Inhaler [Ventolin Hfa 2 puff INHALATION RT-Q6H PRN 05/22/19 05/22/19 History Inhaler] Aspirin EC [Ecotrin] 325 mg PO DAILY 05/22/19 05/22/19 History Tiotropium [place] [Spiriva] 1 cap INHALATION RT-DAILY 05/22/19 05/22/19 History Allergies Allergy/AdvReac Type Severity Reaction Status Date / Time Penicillins Allergy Anaphylaxis Verified 05/22/19 10:19 Physical Examination Right upper extremity: No obvious open lesions or sores present Obvious scab noted over the olecranon bursa, obvious soft tissue swelling and mild erythema surrounding the bursal area I'm unable to appreciate any effusion in the joint, he has full range of motion with regards to extension and flexion along with pronation and supination of the forearm There is no streaking erythema proximally or distal to the area Sensation to light touch throughout extremities intact, radial pulses 2+ Results - Labs Labs: Abnormal Lab Results - Last 24 Hours (Table) 05/22/19 05/22/19 05/23/19 Range/Units 16:49 20:49 06:05 POC Glucose (mg/dL) 298 H 204 H 125 H (75-99) mg/dL 05/23/19 Range/Units 11:57 POC Glucose (mg/dL) 72 L (75-99) mg/dL Microbiology - Last 24 Hours (Table) 05/22/19 10:35 Urine Culture - Preliminary Urine,Voided Gram Neg Bacilli H & H 05/22/19 Range/Units 10:12 Hgb 15.5 (13.0-17.5) gm/dL Hct 47.1 (39.0-53.0) % Coagulation 05/22/19 Range/Units 10:12 INR 1.1 (<1.2) Result Diagrams: 05/22/19 10:12 05/23/19 06:19 Assessment and Plan Plan: Imaging: I did place order for right elbow x-rays, we'll review the images Assessment: 1. Right elbow infected olecranon bursitis 2. Multiple medical comorbidities Plan: I was able to review the case, including physical exam findings with my attending Dr. Carbajal. We will like to proceed with surgical intervention, more specifically an incision and drainage with irrigation and debridement of the right olecranon bursa. We will like to proceed with this on 05/24/2019. We'll obtain further cultures at surgery. Risks and benefits of the procedure were discussed patient at bedside, he is in good understanding would like to proceed. Obtain consent Nothing by mouth after midnight Other medical specially recommendations Further recommendations to follow after surgery Time with Patient: Less than 30
--- NOTE | 2019-05-23 15:14 | XR ---
Right elbow HISTORY: Pain and swelling 3 views of the right elbow There is prominent soft tissue swelling present posterior to the elbow. Bone mineralization, joint sp aces and alignment are maintained. IMPRESSION: Correlate for olecranon bursitis.
--- NOTE | 2019-05-23 17:01 | P.CONS ---
History of Present Illness - Reason for Consult Consult date: 05/22/19 Sepsis Requesting physician: Tenzin Beltrán - Chief Complaint Right elbow pain swelling and redness x few days - History of Present Illness Patient is a 63-year-old male who was evaluated in the ER at [facility] yesterday for right elbow pain swelling and redness with apparently the patient has for couple of days, no history of any trauma, patient did have some dull aching pain in the left elbow area with intensity 5-6 out of 10 and no radiation, with associated swelling and redness with asymptomatic the patient was evaluated by the ER physician, patient did have attempted aspirate of the right elbow, and subsequently the patient was sent home the patient said when he got home he did have rigors and chills and did have a fall while he was in the bathroom did not recall if he lost any consciousness EMS was called and the patient was brought into [facility] for further evaluation of the same, patient did have a heater had cervical spine negative for any fracture chest x-ray negative for any pneumonia, patient was febrile with a temperature 10 2F tachycardic however his white count was normal at 9.[address] arted on vancomycin and infectious disease was consulted for further recommendation about antibiotic therapy Review of Systems CONSTITUTIONAL: Positive for weakness. Fever EYES: No complaint. ENT:No complaint. RESPIRATORY: No complaint. CARDIOVASCULAR: No complaint. GENITOURINARY: No complaint. GASTROINTESTINAL: No complaint. MUSCULOSKELETAL:As per history of present illness INTEGUMENTARY: No complaint. PSYCHOLOGICAL: No complaint. ENDOCRINE: No complaint. NEUROLOGIC: No complaint. Past Medical History Past Medical History: COPD, Diabetes Mellitus, Hyperlipidemia, Hypertension, Osteoarthritis (OA), Sleep Apnea/CPAP/BIPAP Additional Past Medical History / Comment(s): C PAP, BLOOD IN STOOL ,RETAINS FLUID IN AM OF PROCEDURE History of Any Multi-Drug Resistant Organisms: None Reported Past Surgical History: Appendectomy Additional Past Surgical History / Comment(s): CATARACT SURGERY WITH LENS IMPLANT-BILATERAL,EXPLORATORY LAPAROTOMY,AORTIC ANEURYSM REPAIR Past Anesthesia/Blood Transfusion Reactions: No Reported Reaction Past Psychological History: Anxiety Smoking Status: Current every day smoker Past Alcohol Use History: None Reported Additional Past Alcohol Use History / Comment(s): STARTED SMOKING AT AGE 17 SMOKES 1PPD Past Drug Use History: Marijuana Additional Drug Use History / Comment(s): QUIT MARIJUANA DECEMBER 2016 - Past Family History Mother Family Medical History: Cancer Additional Family Medical History / Comment(s): LUNG CANCER Father Family Medical History: Cancer Additional Family Medical History / Comment(s): LUNG CANCER Medications and Allergies Home Medications Medication Instructions Recorded Confirmed Type Atorvastatin [Lipitor] 80 mg PO HS 09/11/17 05/22/19 History Furosemide [Lasix] 20 mg PO DAILY 09/11/17 05/22/19 History Lisinopril [Zestril] 2.5 mg PO DAILY 09/11/17 05/22/19 History metFORMIN HCL [Glucophage] 500 mg PO BID 09/11/17 05/22/19 History Albuterol Inhaler [Ventolin Hfa 2 puff INHALATION RT-Q6H PRN 05/22/19 05/22/19 History Inhaler] Aspirin EC [Ecotrin] 325 mg PO DAILY 05/22/19 05/22/19 History Tiotropium [place] [Spiriva] 1 cap INHALATION RT-DAILY 05/22/19 05/22/19 History Allergies Allergy/AdvReac Type Severity Reaction Status Date / Time Penicillins Allergy Anaphylaxis Verified 05/22/19 10:19 Physical Exam Vitals: Vital Signs Temp Pulse Pulse Resp BP BP Pulse Ox 05/22/19 15:31 97.7 F 86 18 109/67 92 L 05/22/19 13:17 99.3 F 05/22/19 12:21 115 H 21 119/72 91 L 05/22/19 10:56 124 H 05/22/19 10:43 120 H 05/22/19 10:42 93 L 05/22/19 10:27 102.5 F H 05/22/19 09:49 99.1 F 131 H 21 105/57 92 L Intake and Output 05/22/19 05/22/19 05/22/19 06:59 14:59 22:59 Intake Total 80 Balance 80 Intake: Intake, IV Titration 80 Amount Sodium Chloride 0.9% 1, 80 000 ml @ 80 mls/hr IV . [id number] [facility] Rx#:[id number] Other: Weight 81.647 kg GENERAL DESCRIPTION: An elderly male up in the chair, no distress. No tachypnea or accessory muscle of respiration use. HEENT: Shows Pallor , no scleral icterus. Oral mucous membrane is dry. No pharyngeal erythema or thrush NECK: Trachea central, no thyromegaly. LUNGS: Unlabored breathing. Clear to auscultation anteriorly. No wheeze or crackle. HEART: S1, S2, regular rate and rhythm. No loud murmur ABDOMEN: Soft, no tenderness , guarding or rigidity, no organomegaly EXTREMITIES: Right elbow swelling redness minimal drainage tender to touch SKIN: No rash, no masses palpable. NEUROLOGICAL: The patient is awake, alert, oriented x3, mood and affect normal. Results CBC & Chem 7: 05/22/19 10:12 05/23/19 06:19 Labs: Abnormal Lab Results - Last 24 Hours (Table) 05/22/19 05/22/19 05/22/19 Range/Units 10:12 10:12 10:12 RDW 16.5 H (11.5-15.5) % Neutrophils # 8.6 H (1.3-7.7) k/uL Lymphocytes # 0.4 L (1.0-4.8) k/uL Glucose 154 H (74-99) mg/dL Plasma Lactic Acid Raza 2.9 H* (0.7-2.0) mmol/L ALT 8 L (21-72) U/L Urine Protein (Negative) Urine Blood (Negative) Urine RBC (0-5) /hpf Urine WBC (0-5) /hpf Hyaline Casts (0-2) /lpf Urine Mucus (None) /hpf 05/22/19 Range/Units 10:35 RDW (11.5-15.5) % Neutrophils # (1.3-7.7) k/uL Lymphocytes # (1.0-4.8) k/uL Glucose (74-99) mg/dL Plasma Lactic Acid Raza (0.7-2.0) mmol/L ALT (21-72) U/L Urine Protein 1+ H (Negative) Urine Blood Large H (Negative) Urine RBC >182 H (0-5) /hpf Urine WBC 30 H (0-5) /hpf Hyaline Casts 6 H (0-2) /lpf Urine Mucus Occasional H (None) /hpf Microbiology - Last 24 Hours (Table) 05/22/19 10:35 Urine Culture - Preliminary Urine,Voided Assessment and Plan Assessment: 1-patient in the hospital with sepsis in this patient who did have a fever tachycardia associated right elbow septic olecranon bursitis likely from gram- positive skin fatoumata suggests staph aureus with concern for possible community associated MRSA 2-patient with penicillin ALLERGY that will limit the number of antibiotic safe to use (1) Olecranon bursitis, right elbow Current Visit: Yes Status: Acute Code(s): M70.21 - OLECRANON BURSITIS, RIGHT ELBOW SNOMED Code(s): 358292684149111 (2) Sepsis Current Visit: Yes Status: Acute Code(s): A41.9 - SEPSIS, UNSPECIFIED ORGANISM SNOMED Code(s): 16706480 Plan: 1-Vancomycin pharmacy to dose target trough of 15 while watching his kidney function and Vanco trough closely 2-orthopedic evaluation for bursectomy and deep culture We will follow on clinical condition and cultures to further adjust medication if needed Thank you for this consultation will follow this patient with you Time with Patient: Greater than 30
[2019-05-23 17:07] LABS: Glucose,Whole Blood 114 mg/dL (75-99)
--- NOTE | 2019-05-23 19:10 | PN ---
PROGRESS NOTE CHIEF COMPLAINT: Congestive heart failure and infection of the right elbow. HISTORY OF PRESENT ILLNESS: This gentleman's cultures have grown out MRSA from the right elbow. He is breathing a bit better. He is less short of breath. PHYSICAL EXAM: Chest is more clear. There are occasional rales. Breath sounds are improved. Cardiac exam is unchanged. The abdomen is soft and nontender. Extremities are unchanged. The right elbow is dressed. IMPRESSION: 1. Congestive heart failure. 2. MRSA of the right elbow. PLAN: Continue treatment and refer to Cardiology. MMODL / IJN: [id number] /
[2019-05-23] MEDS: FUROSEMIDE 10 MG/ML 2 ML VIAL IV SCH (20:40)
[2019-05-23 20:56] LABS: Glucose,Whole Blood 116 mg/dL (75-99)
--- NOTE | 2019-05-23 21:56 | PN ---
PROGRESS NOTE DATE OF SERVICE: 05/23/2019. REASON FOR FOLLOWUP: Right elbow septic olecranon bursitis. INTERVAL HISTORY: The patient is currently afebrile. Patient has been breathing comfortably. Denies worsening pain to the elbow area. No chest pain or shortness of breath or cough. No abdominal pain and no diarrhea. PHYSICAL EXAMINATION: Blood pressure 106/55 with a pulse of 68, temperature 98, he is 97% on 6 L high-flow oxygen. GENERAL DESCRIPTION: An elderly male up in the chair in no distress. RESPIRATORY SYSTEM: Unlabored breathing with decreased breath sounds at the bases. HEART: S1, S2. Regular rate and rhythm. ABDOMEN: Soft, no tenderness. LABS: Urine showing gram-negative. The right elbow cultures are currently showing Staph aureus. DIAGNOSTIC IMPRESSION AND PLAN: Patient admitted to the hospital sepsis, source likely multifactorial, likely combination of right elbow septic olecranon bursitis for which the patient is scheduled to have bursectomy tomorrow morning per Orthopedics. Also with a component of a gram- negative urinary tract infection showing gram-negative. Patient did well on cefepime in the ER. Will be started on Rocephin 1 g daily while waiting for the culture to finalize. Continue supportive care. MMODL / IJN: [id number] /
[2019-05-24] MEDS: SODIUM CHLORIDE 0.9% 1,000 ML IV SCH ×2 (05:17→17:07)
[2019-05-24 06:34] LABS: Glucose,Whole Blood 81 mg/dL (75-99)
[2019-05-24] MEDS: IPRATROPIUM 0.5 MG/2.5 ML NEBU INHALATION SCH ×4 (07:30→18:53)
[2019-05-24] MEDS: INSULIN ASPART (NovoLOG) 100 UNIT/ML VIAL SQ SCH ×4 (07:40→21:03)
[2019-05-24] MEDS ORDERED: VANCOMYCIN TROUGH DUE 1 EACH MISC MISCELLANE ONE (08:00)
[2019-05-24] MEDS: PANTOPRAZOLE 40 MG/10 ML VIAL IV SCH (08:20)
[2019-05-24] MEDS: FUROSEMIDE 10 MG/ML 2 ML VIAL IV SCH ×2 (08:20→19:52)
[2019-05-24] MEDS: LISINOPRIL 2.5 MG TAB PO SCH (08:23)
[2019-05-24] MEDS: CITALOPRAM HYDROBROMIDE 20 MG TAB PO SCH (08:23)
[2019-05-24] MEDS: ASPIRIN 325 MG TAB PO SCH (08:23)
[2019-05-24 08:44] LABS: African American GFR (CKD) >90 (>60 ml/min/1.73 sqM); Anion Gap 4 mmol/L; Blood Urea Nitrogen 19 mg/dL (9-20); Calcium 8.3 mg/dL (8.4-10.2); Carbon Dioxide 33 mmol/L (22-30); Chloride 100 mmol/L (98-107); Glucose 83 mg/dL (74-99); Non-African American GFR(CKD) >90 (>60 ml/min/1.73 sqM); Potassium 4.6 mmol/L (3.5-5.1); Sodium 137 mmol/L (137-145)
[2019-05-24] MEDS: VANCOMYCIN 1,500 MG in SODIUM CHLORIDE 0.9% 250 ML IVPB SCH ×2 (10:12→19:52)
--- NOTE | 2019-05-24 10:40 | P.PN ---
Subjective Progress Note Date: 05/24/19 This is a 63-year-old gentleman with history of diabetes, hypertension, hyperlipidemia, COPD, sleep apnea, who had been somewhat noncompliant with taking his medications at home. He came to the hospital primarily with an infection of the right elbow that was treated, went home and passed out at home. Came back to the hospital on this occasion following that episode with symptoms of feeling weak fatigued and tired. On his initial presentation here his lactic acid was 2.9, BNP was elevated, temperature was 102.5 and the white blood cell count elevated. Cardiology consultation was initially requested because of elevated BNP level. Patient does have acute on chronic diastolic congestive heart failure and his diuresed well on IV Lasix through the night last night. His blood pressure this morning 120/70 with a heart rate in the 80s, 95% on CPAP. Sodium 137, potassium 4.6, BUN 19 and creatinine 0.7. His weight is down 1 kg today. Objective - Vital Signs Vital signs: Vital Signs Temp 98.5 F 05/24/19 07:48 Pulse 58 L 05/24/19 07:48 Resp 18 05/24/19 07:48 BP 136/83 05/24/19 07:48 Pulse Ox 96 05/24/19 07:48 Intake & Output 05/23/19 05/24/19 05/24/19 18:59 06:59 18:59 Intake Total 800 540 Output Total 1700 2100 Balance -900 -2100 540 Weight 79.2 kg Intake: Intake, IV Titration 80 540 Amount Sodium Chloride 0.9% 1, 80 240 000 ml @ 80 mls/hr IV . [id number] [facility] Rx#:[id number] Vancomycin 1,500 mg In 250 Sodium Chloride 0.9% 250 ml @ 125 mls/hr IVPB Q12HR [facility] Rx#:[id number] cefTRIAXone 1 gm In 50 Sodium Chloride 0.9% 50 ml @ 100 mls/hr IVPB Q24HR [facility] Rx#:[id number] Oral 720 Output: Urine 1700 2100 Other: # Voids 1 1 1,000 - Exam PHYSICAL EXAMINATION: GENERAL: 63-year-old gentleman in no acute distress at the time of my examination HEENT: Head is atraumatic, normocephalic. Pupils equal, round. Sclera anicteric. Conjunctiva are clear. Mucous membranes of the mouth are moist. Neck is supple. There is no elevated jugular venous pressure. No carotid bruit is heard. HEART EXAMINATION: Heart S1, S2 normal. No murmur or gallop heard. CHEST EXAMINATION: Lungs reveal diminished air entry bilaterally to the bases. ABDOMEN: Soft, nontender. Bowel sounds are heard. No organomegaly noted. EXTREMITIES: 2+ peripheral pulses with evidence of peripheral edema and no calf tenderness noted. Patient does have a significantly swollen area to the right elbow NEUROLOGIC [patient is awake, alert and oriented 3 . - Labs CBC & Chem 7: 05/22/19 10:12 05/24/19 08:03 Labs: Abnormal Lab Results - Last 24 Hours (Table) 05/23/19 05/23/19 05/23/19 Range/Units 11:57 17:04 20:55 Carbon Dioxide (22-30) mmol/L POC Glucose (mg/dL) 72 L 114 H 116 H (75-99) mg/dL Calcium (8.4-10.2) mg/dL 05/24/19 Range/Units 08:03 Carbon Dioxide 33 H (22-30) mmol/L POC Glucose (mg/dL) (75-99) mg/dL Calcium 8.3 L (8.4-10.2) mg/dL Microbiology - Last 24 Hours (Table) 05/22/19 10:35 Urine Culture - Final Urine,Voided Pseudomonas aeruginosa 05/22/19 12:05 Blood Culture - Preliminary Blood No Growth after 24 hours Assessment and Plan Plan: Assessment and plan #1 right elbow infected olecranon bursitis #2 acute on chronic diastolic congestive heart failure #3 hypertension #4 diabetes #5 hyperlipidemia #6 sleep apnea #7 COPD #8 nicotine dependence Plan Echocardiogram with Doppler study has been performed, results are yet pending. We will continue with current dose of IV Lasix, decrease aspirin to 81 mg daily. Patient has been getting IV fluids at 80 mL per hour we will turn that down to KVO, continue HANDY inhibitor. Initiate small dose beta daina, further recommendations to follow. DNP note has been reviewed, I agree with a documented findings and plan of care. Patient was seen and examined.
[2019-05-24 10:44] LABS: Hemoglobin A1C 6.3 % (4.0-6.0)
--- NOTE | 2019-05-24 11:50 | ECHOF ---
Referral Reason:CHF MEASUREMENTS -------- HEIGHT: 172.7 cm WEIGHT: 78.9 kg BP: 120/72 RVIDd: 4.3 cm (< 3.3) IVSd: 1.0 cm (0.6 - 1.1) LVIDd: 4.3 cm (3.9 - 5.3) LVPWd: 1.1 cm (0.6 - 1.1) IVSs: 1.4 cm LVIDs: 2.9 cm LVPWs: 1.7 cm LA Diam: 3.1 cm (2.7 - 3.8) LAESV Index (A-L): 18.81 ml/m Ao Diam: 3.4 cm (2.0 - 3.7) AV Cusp: 2.4 cm (1.5 - 2.6) MV EXCURSION: 21.866 mm (> 18.000) MV EF SLOPE: 60 mm/s (70 - 150) EPSS: 0.5 cm MV E Simba: 0.69 m/s MV DecT: 290 ms MV A Simba: 0.95 m/s MV E/A Ratio: 0.73 RAP: 15.00 mmHg RVSP: 49.57 mmHg FINDINGS -------- Sinus rhythm. This was a technically good study. The left ventricular size is normal. There is borderline concentric left ventricular hypertrophy. Overall left ventricular systolic function is normal with, an EF between 55 - 60 %. The right ventricle is severely enlarged. Moderator band is visualized in the right ventricular ape x. Normal LA size by volume 22+/-6 ml/m2. The right atrium is normal in size. Interatrial and interventricular septum intact. There is mild aortic valve sclerosis. The mitral valve leaflets are mildly thickened. There is trace to mild mitral regurgitation. Mild tricuspid regurgitation present. There is moderate pulmonary hypertension. The right ventric ular systolic pressure, as measured by Doppler, is 49.57mmHg. There is no pulmonic regurgitation present. The aortic root size is normal. The inferior vena cava is dilated with poor inspiratory collapse which is consistent with estimated r ight atrial pressure of 15 mmHg. There is no pericardial effusion. CONCLUSIONS -------- 1. Sinus rhythm. 2. This was a technically good study. 3. The left ventricular size is normal. 4. There is borderline concentric left ventricular hypertrophy. 5. Overall left ventricular systolic function is normal with, an EF between 55 - 60 %. 6. The right ventricle is severely enlarged. 7. Moderator band is visualized in the right ventricular apex. 8. Normal LA size by volume 22+/-6 ml/m2. 9. The right atrium is normal in size. 10. Interatrial and interventricular septum intact. 11. There is mild aortic valve sclerosis. 12. The mitral valve leaflets are mildly thickened. 13. There is trace to mild mitral regurgitation. 14. Mild tricuspid regurgitation present. 15. There is moderate pulmonary hypertension. 16. The right ventricular systolic pressure, as measured by Doppler, is 49.57mmHg. 17. There is no pulmonic regurgitation present. 18. The aortic root size is normal. 19. The inferior vena cava is dilated with poor inspiratory collapse which is consistent with estimat ed right atrial pressure of 15 mmHg. 20. There is no pericardial effusion. ASSISTANT MEDIA PLANNER: Olivia Blanco RDCS
[2019-05-24 11:54] LABS: Glucose,Whole Blood 88 mg/dL (75-99)
[2019-05-24] MEDS: CIPROFLOXACIN HCL 500 MG TAB PO SCH ×2 (12:38→19:51)
[2019-05-24 14:04] LABS: Glucose,Whole Blood 75 mg/dL (75-99)
[2019-05-24] MEDS ORDERED: LACTATED RINGERS 1,000 ML IV ONE ×3 (14:04→15:11)
[2019-05-24] MEDS ORDERED: PROPOFOL 10 MG/ML 20 ML VIAL IV ONE (14:30)
[2019-05-24] MEDS ORDERED: LIDOCAINE 1% INJ 10MG/ML (20 ML MDV) ONE (14:30)
[2019-05-24] MEDS ORDERED: ePHEDrine SULFATE/0.9% NACL/PF 50 MG/5 ML SYRINGE IV ONE (14:30)
[2019-05-24] MEDS ORDERED: MIDAZOLAM 2 MG/2 ML VIAL ONE (14:30)
[2019-05-24] MEDS ORDERED: fentaNYL (PF) 50 MCG/ML 2 ML AMP ONE (14:30)
[2019-05-24] MEDS ORDERED: BUPIVACAINE (PF) 0.5% 30 ML VIAL SQ ONE ×2 (15:10→15:31)
--- NOTE | 2019-05-24 15:46 | P.OP ---
Date of Procedure: 05/24/19 Preoperative Diagnosis: Right elbow septic olecranon bursitis Postoperative Diagnosis: Right elbow septic olecranon bursitis Procedure(s) Performed: Right elbow bursectomy Anesthesia: NABEEL, local Surgeon: Ciaran Carbajal Cop Winder #1: Angel Gallardo Estimated Blood Loss (ml): 12 Pathology: none sent Condition: stable Disposition: PACU Indications for Procedure: 63-year-old patient seen with a right elbow septic olecranon bursitis. I recommended olecranon bursectomy along with irrigation. I reviewed the procedure, risks, complications and recovery. The patient was agreeable. Consent regarding procedure was obtained. Operative Findings: See description of procedure Description of Procedure: The patient was taken to the operative suite. A general anesthetic by the department of anesthesia. A well-padded tourniquet placed proximal right upper extremity. The right upper extremity was prepped and draped in the normal sterile orthopedic fashion. A tourniquet was insufflated to 250. An incision was now made over the olecranon bursa. We may encountered a large area of serosanguineous fluid which was evacuated. Cultures were obtained of the deep bursal tissue. We now irrigated the wound. I now meticulously performed a partial, bursectomy removing any abnormal thickened bursal tissue encountered. We then irrigated the wound was pulse lavage mechanical irrigation. We then m eticulously repaired the subcutaneous soft tissues back to the fascial and periosteum utilizing 2-0 Vicryl. The skin incision was loosely approximated with nylon suture. Subcutaneous soft tissues were infiltrated with 20 mL half percent plain Marcaine for postoperative analgesia. Sterile dressings were applied. Loose web bone Duong bandage were applied. The tourniquet was released and immediate capillary refill noted of all digits. Edgar WAITE assisted with the procedure.
[2019-05-24 16:56] LABS: Glucose,Whole Blood 92 mg/dL (75-99)
--- NOTE | 2019-05-24 18:42 | PN ---
PROGRESS NOTE DATE OF SERVICE: 05/24/2019 REASON FOR FOLLOWUP: 1. Right elbow olecranon bursitis. 2. Pseudomonas UTI. INTERVAL HISTORY: The patient is currently afebrile. The patient has been breathing comfortably. He is awaiting for surgical I&D of his right elbow for olecranon bursa this afternoon. No nausea, no vomiting, no abdominal pain, no diarrhea. PHYSICAL EXAMINATION: Blood pressure 117/59 with a pulse of 75, temperature 98.8. He is 91% on 4 L nasal cannula. General description is an elderly male lying in bed in no distress. RESPIRATORY SYSTEM: Unlabored breathing. Clear to auscultation anteriorly. HEART: S1, S2. Regular rate and rhythm. ABDOMEN: Soft. No tenderness. Right elbow remains swollen and red, though redness has slightly decreased. No drainage. LABS: BUN of 19, creatinine 0.72. Vancomycin trough is 13.9. Urine with Pseudomonas aeruginosa. Right elbow cultures with presumptive Staph aureus. Blood culture has been negative. DIAGNOSTIC IMPRESSION AND PLAN: 1. Patient with right elbow olecranon bursitis. Culture positive for Staphylococcus aureus with sensitivities pending. Patient is currently covered with vancomycin while monitoring his clinical course and vancomycin trough closely. 2. Patient with a urinary tract infection. Urine is showing Pseudomonas aeruginosa. Discontinue the Rocephin. Usual course of oral Cipro. Will monitor clinical course closely. MMODL / IJN: [id number] / MTDD
--- NOTE | 2019-05-24 18:57 | PN ---
PROGRESS NOTE CHIEF COMPLAINT: Shortness of breath and MRSA bursitis of the right elbow. HISTORY OF PRESENT ILLNESS: This gentleman is feeling fairly well. His breathing has improved. PHYSICAL EXAMINATION: Chest is more clear. There are many fewer rales. Cardiac exam is unremarkable. Abdomen is soft, nontender. IMPRESSION: 1. Methicillin-resistant Staphylococcus aeruginosa cellulitis, abscess or bursitis of the right elbow. 2. Congestive heart failure. PLAN: Continue management of his heart failure and progress his activity while antibiotics continue for the elbow. MMODL / IJN: [id number] /
[2019-05-24] MEDS: HYDROcodone/APAP 5-325MG 1 EACH TAB PO PRN (19:52)
[2019-05-24 20:55] LABS: Glucose,Whole Blood 146 mg/dL (75-99)
[2019-05-24] MEDS ORDERED: HYDROmorphone 1 MG/ML 1 ML SYRINGE IVP STA (20:55)
[2019-05-25] MEDS: HYDROcodone/APAP 5-325MG 1 EACH TAB PO PRN ×4 (04:57→23:41)
[2019-05-25 05:51] LABS: Glucose,Whole Blood 127 mg/dL (75-99)
[2019-05-25 06:04] LABS: Glucose,Whole Blood 114 mg/dL (75-99)
[2019-05-25] MEDS: INSULIN ASPART (NovoLOG) 100 UNIT/ML VIAL SQ SCH ×4 (06:04→22:25)
[2019-05-25 06:59] LABS: African American GFR (CKD) >90 (>60 ml/min/1.73 sqM); Anion Gap 4 mmol/L; Blood Urea Nitrogen 27 mg/dL (9-20); Calcium 8.2 mg/dL (8.4-10.2); Carbon Dioxide 33 mmol/L (22-30); Chloride 98 mmol/L (98-107); Glucose 114 mg/dL (74-99); Non-African American GFR(CKD) >90 (>60 ml/min/1.73 sqM); Potassium 4.7 mmol/L (3.5-5.1); Sodium 135 mmol/L (137-145)
[2019-05-25] MEDS: IPRATROPIUM 0.5 MG/2.5 ML NEBU INHALATION SCH ×4 (07:18→22:02)
[2019-05-25] MEDS: METOPROLOL SUCCINATE (ER) 25 MG TAB.ER.24H PO SCH (08:23)
[2019-05-25] MEDS: CIPROFLOXACIN HCL 500 MG TAB PO SCH ×2 (08:23→22:10)
[2019-05-25] MEDS: PANTOPRAZOLE 40 MG TABLET PO SCH (08:23)
[2019-05-25] MEDS: LISINOPRIL 2.5 MG TAB PO SCH (08:23)
[2019-05-25] MEDS: ASPIRIN 81 MG PO SCH (08:23)
[2019-05-25] MEDS: CITALOPRAM HYDROBROMIDE 20 MG TAB PO SCH (08:23)
[2019-05-25] MEDS: FUROSEMIDE 10 MG/ML 2 ML VIAL IV SCH (08:23)
[2019-05-25] MEDS: VANCOMYCIN 1,500 MG in SODIUM CHLORIDE 0.9% 250 ML IVPB SCH (08:23)
[2019-05-25 11:45] LABS: Glucose,Whole Blood 111 mg/dL (75-99)
--- NOTE | 2019-05-25 15:52 | P.PN ---
Subjective Progress Note Date: 05/25/19 This is a 63-year-old gentleman with history of diabetes, hypertension, hyperlipidemia, COPD, sleep apnea, who had been somewhat noncompliant with taking his medications at home. He came to the hospital primarily with an infection of the right elbow that was treated, went home and passed out at home. Came back to the hospital on this occasion following that episode with symptoms of feeling weak fatigued and tired. On his initial presentation here his lactic acid was 2.9, BNP was elevated, temperature was 102.5 and the white blood cell count elevated. Cardiology consultation was initially requested because of elevated BNP level. Patient does have acute on chronic diastolic congestive heart failure and his diuresed well on IV Lasix through the night last night. His blood pressure this morning 120/70 with a heart rate in the 80s, 95% on CPAP. Sodium 137, potassium 4.6, BUN 19 and creatinine 0.7. His weight is down 1 kg today. 05/25/2019 Patient seen and examined this morning, he diuresed well through the night last night and his weight is down significantly, overall his breathing is stable. He is complaining of some discomfort persisting in his right elbow. Blood pres sure 98/50 with a heart rate in the 60s, 92% on 6 L of oxygen. Sodium 135, potassium 4.5, BUN 27 and creatinine 0.8. Objective - Vital Signs Vital signs: Vital Signs Temp 96.1 F L 05/25/19 15:30 Pulse 69 05/25/19 15:32 Resp 16 05/25/19 15:32 BP 98/55 05/25/19 15:30 Pulse Ox 92 L 05/25/19 15:30 Intake & Output 05/24/19 05/25/19 05/25/19 18:59 06:59 18:59 Intake Total 2180 822 Output Total 1012 1200 1550 Balance 1168 1200 -918 Weight 78.6 kg Intake: IV 1400 Intake, IV Titration 540 Amount Sodium Chloride 0.9% 1, 240 000 ml @ 20 mls/hr IV . Q24H FERNANDO Rx#:[id number] Vancomycin 1,500 mg In 250 Sodium Chloride 0.9% 250 ml @ 125 mls/hr IVPB Q12HR FERNANDO Rx#:[id number] cefTRIAXone 1 gm In 50 Sodium Chloride 0.9% 50 ml @ 100 mls/hr IVPB Q24HR FERNANDO Rx#:[id number] Oral 240 822 Output: Urine 1000 1200 1550 Estimated Blood Loss 12 Other: # Voids 1,000 1 5 - Exam PHYSICAL EXAMINATION: GENERAL: 63-year-old gentleman in no acute distress at the time of my examination HEENT: Head is atraumatic, normocephalic. Pupils equal, round. Sclera anicteric. Conjunctiva are clear. Mucous membranes of the mouth are moist. Neck is supple. There is no elevated jugular venous pressure. No carotid bruit is heard. HEART EXAMINATION: Heart S1, S2 normal. No murmur or gallop heard. CHEST EXAMINATION: Lungs reveal improvement in air entry bilaterally to the bases. ABDOMEN: Soft, nontender. Bowel sounds are heard. No organomegaly noted. EXTREMITIES: 2+ peripheral pulses with no evidence of peripheral edema and no calf tenderness noted. Patient does have a significantly swollen area to the right elbow NEUROLOGIC [patient is awake, alert and oriented 3 . - Labs CBC & Chem 7: 05/22/19 10:12 05/25/19 06:21 Labs: Abnormal Lab Results - Last 24 Hours (Table) 05/24/19 05/25/19 05/25/19 Range/Units 20:53 05:50 06:01 Sodium (137-145) mmol/L Carbon Dioxide (22-30) mmol/L BUN (9-20) mg/dL Glucose (74-99) mg/dL POC Glucose (mg/dL) 146 H 127 H 114 H (75-99) mg/dL Calcium (8.4-10.2) mg/dL 05/25/19 05/25/19 Range/Units 06:21 11:43 Sodium 135 L (137-145) mmol/L Carbon Dioxide 33 H (22-30) mmol/L BUN 27 H (9-20) mg/dL Glucose 114 H (74-99) mg/dL POC Glucose (mg/dL) 111 H (75-99) mg/dL Calcium 8.2 L (8.4-10.2) mg/dL Microbiology - Last 24 Hours (Table) 05/22/19 12:05 Blood Culture - Preliminary Blood No Growth after 72 hours 05/24/19 14:54 Gram Stain - Preliminary Elbow - Right Wound Culture - Preliminary 07/29/19 14:54 Anaerobic Culture - Preliminary Elbow - Right Assessment and Plan Plan: Assessment and plan #1 right elbow infected olecranon bursitis #2 acute on chronic diastolic congestive heart failure #3 hypertension #4 diabetes #5 hyperlipidemia #6 sleep apnea #7 COPD #8 nicotine dependence Plan Echocardiac gram with Doppler study was performed which revealed an ejection fraction of 55-60%. We will discontinue the IV Lasix today and put the patient on oral diuretics. Continue with the rest of his medications. DNP note has been reviewed, I agree with a documented findings and plan of care. Patient was seen and examined.
--- NOTE | 2019-05-25 16:16 | P.PN ---
Subjective Progress Note Date: 05/25/19 Principal diagnosis: Status post olecranon bursectomy right elbow Patient evaluated bedside today, his resting comfortably. He notes minimal discomfort involving the elbow. He denies any fevers or chills. Objective - Vital Signs Vital signs: Vital Signs Temp 96.1 F L 05/25/19 15:30 Pulse 69 05/25/19 15:32 Resp 16 05/25/19 15:32 BP 98/55 05/25/19 15:30 Pulse Ox 92 L 05/25/19 15:30 Intake & Output 05/24/19 05/25/19 05/25/19 18:59 06:59 18:59 Intake Total 2180 822 Output Total 1012 1200 1550 Balance 1168 -1200 -728 Weight 78.6 kg Intake: IV 1400 Intake, IV Titration 540 Amount Sodium Chloride 0.9% 1, 240 000 ml @ 20 mls/hr IV . Q24H [facility]ERNA[facility] Rx#:[id number] Vancomycin 1,500 mg In 250 Sodium Chloride 0.9% 250 ml @ 125 mls/hr IVPB Q12HR [facility]ERNA[facility] Rx#:[id number] cefTRIAXone 1 gm In 50 Sodium Chloride 0.9% 50 ml @ 100 mls/hr IVPB Q24HR [facility]ERNA[facility] Rx#:[id number] Oral 240 822 Output: Urine 1000 1200 1550 Estimated Blood Loss 12 Other: # Voids 1,000 1 5 - Exam Right upper extremity: Initial postop bandages were changed, incision is well-healing, stitches are in good position. No obvious drainage present. Patient is able to fully extend been the elbow with minimal difficulty. - Labs CBC & Chem 7: 05/22/19 10:12 05/25/19 06:21 Labs: Abnormal Lab Results - Last 24 Hours (Table) 05/24/19 05/25/19 05/25/19 Range/Units 20:53 05:50 06:01 Sodium (137-145) mmol/L Carbon Dioxide (22-30) mmol/L BUN (9-20) mg/dL Glucose (74-99) mg/dL POC Glucose (mg/dL) 146 H 127 H 114 H (75-99) mg/dL Calcium (8.4-10.2) mg/dL 05/25/19 05/25/19 Range/Units 06:21 11:43 Sodium 135 L (137-145) mmol/L Carbon Dioxide 33 H (22-30) mmol/L BUN 27 H (9-20) mg/dL Glucose 114 H (74-99) mg/dL POC Glucose (mg/dL) 111 H (75-99) mg/dL Calcium 8.2 L (8.4-10.2) mg/dL Microbiology - Last 24 Hours (Table) 05/22/19 12:05 Blood Culture - Preliminary Blood No Growth after 72 hours 05/24/19 14:54 Gram Stain - Preliminary Elbow - Right Wound Culture - Preliminary 05/24/19 14:54 Anaerobic Culture - Preliminary Elbow - Right Assessment and Plan Plan: Assessment: Postop day #1 status post right elbow olecranon bursectomy Plan: Daily dressing changes Await culture results Pain control Other medical specialty recommendations We'll continue to follow during inpatient stay Time with Patient: Less than 30
[2019-05-25 16:58] LABS: Glucose,Whole Blood 122 mg/dL (75-99)
[2019-05-25] MEDS: SODIUM CHLORIDE 0.9% 1,000 ML IV SCH (16:58)
[2019-05-25] MEDS: FUROSEMIDE 20 MG TAB PO SCH (17:08)
--- NOTE | 2019-05-25 19:37 | PN ---
PROGRESS NOTE DATE OF SERVICE: 05/25/2019. REASON FOR FOLLOWUP: 1. Right elbow MSSA with olecranon bursitis. 2. Pseudomonas UTI. INTERVAL HISTORY: The patient is currently afebrile. The patient has been breathing comfortably. Denies having any chest pain. No worsening pain in the right elbow area. No nausea or vomiting and no diarrhea. PHYSICAL EXAMINATION: Blood pressure 98/55 with a pulse of 59, temperature 96.1. He is 92% on 6 L nasal cannula. General description is an elderly male up in the bed in no distress. RESPIRATORY SYSTEM: Unlabored breathing with decreased breath sounds at the base. No wheeze. HEART: S1, S2. Regular rate and rhythm. ABDOMEN: Soft. No tenderness. Right elbow is currently dressed up. No obvious drainage on the dressing. LABS: BUN of 27, creatinine 0.84. The aspirate from the right elbow is MSSA. DIAGNOSTIC IMPRESSION AND PLAN: 1. Patient with right elbow septic olecranon bursitis. Culture has been positive for MSSA. Discontinue the vancomycin. Cefazolin 2 grams q.8 should be started. The patient will benefit from a midline, at least a 2 week course of IV cefazolin in the outpatient setting. Will try to arrange for that in the outpatient setting. 2. Pseudomonas urinary tract infection. Short course of oral Cipro. MMODL / IJN: [id number] / MTDD
[2019-05-25 20:41] LABS: Glucose,Whole Blood 125 mg/dL (75-99)
--- NOTE | 2019-05-25 22:35 | PN ---
PROGRESS NOTE CHIEF COMPLAINT: Congestive heart failure and infected olecranon bursa of the right elbow. HISTORY OF PRESENT ILLNESS: This gentleman is having some discomfort in the right elbow postoperatively. He is still having a little respiratory difficulty, but he is improving. PHYSICAL EXAMINATION: Chest demonstrates decreased breath sounds at the bases still. Cardiac exam is normal. Abdomen is soft and nontender. Pulse ox is 86. IMPRESSION: 1. Congestive heart failure. 2. Infected olecranon bursitis of the right elbow. 3. Hypocalcemia at 8.2. PLAN: Continue management of his congestive heart failure and increase his activity. Discharge planning may be an issue. MMODL / IJN: [id number] /
[2019-05-26 06:18] LABS: Glucose,Whole Blood 94 mg/dL (75-99)
[2019-05-26] MEDS: INSULIN ASPART (NovoLOG) 100 UNIT/ML VIAL SQ SCH ×4 (06:23→21:23)
[2019-05-26] MEDS: IPRATROPIUM 0.5 MG/2.5 ML NEBU INHALATION SCH ×4 (08:20→20:02)
[2019-05-26] MEDS: CITALOPRAM HYDROBROMIDE 20 MG TAB PO SCH (08:35)
[2019-05-26] MEDS: METOPROLOL SUCCINATE (ER) 25 MG TAB.ER.24H PO SCH (08:36)
[2019-05-26] MEDS: LISINOPRIL 2.5 MG TAB PO SCH (08:36)
[2019-05-26] MEDS: ASPIRIN 81 MG PO SCH (08:36)
[2019-05-26] MEDS: FUROSEMIDE 20 MG TAB PO SCH ×2 (08:36→16:51)
[2019-05-26] MEDS: CIPROFLOXACIN HCL 500 MG TAB PO SCH ×2 (08:36→20:21)
[2019-05-26] MEDS: PANTOPRAZOLE 40 MG TABLET PO SCH (08:36)
--- NOTE | 2019-05-26 11:41 | P.PN ---
Subjective Progress Note Date: 05/26/19 Principal diagnosis: Status post olecranon bursectomy right elbow Patient evaluated bedside today, his resting comfortably. He notes minimal discomfort involving the elbow. He denies any fevers or chills. Objective - Vital Signs Vital signs: Vital Signs Temp 98.4 F 05/26/19 08:00 Pulse 89 05/26/19 08:30 Resp 18 05/26/19 08:00 BP 117/62 05/26/19 08:00 Pulse Ox 94 L 05/26/19 08:00 Intake & Output 05/25/19 05/26/19 05/26/19 18:59 06:59 18:59 Intake Total 1302 Output Total 1925 850 Balance -623 -850 Intake: Oral 1302 Output: Urine 1925 850 Other: # Voids 1 - Exam Right upper extremity: incision is well-healing, stitches are in good position. No obvious drainage present. Patient is able to fully extend been the elbow with minimal difficulty. - Labs CBC & Chem 7: 05/22/19 10:12 05/25/19 06:21 Labs: Abnormal Lab Results - Last 24 Hours (Table) 05/25/19 05/25/19 05/25/19 Range/Units 11:43 16:56 20:40 POC Glucose (mg/dL) 111 H 122 H 125 H (75-99) mg/dL Microbiology - Last 24 Hours (Table) 05/24/19 14:54 Gram Stain - Preliminary Elbow - Right Wound Culture - Preliminary Presumptive Staph aureus 05/22/19 12:05 Blood Culture - Preliminary Blood No Growth after 72 hours Assessment and Plan Plan: Assessment: Postop day #2 status post right elbow olecranon bursectomy Plan: Daily dressing changes Pain control Other medical specialty recommendations Orthopedically stable for discharge, we'll be signing off patient at this time Time with Patient: Less than 30
[2019-05-26] MEDS: SODIUM CHLORIDE 0.9% 1,000 ML IV SCH (11:51)
[2019-05-26 11:59] LABS: Glucose,Whole Blood 70 mg/dL (75-99)
--- NOTE | 2019-05-26 12:22 | P.PN ---
Subjective Progress Note Date: 05/26/19 This is a 63-year-old gentleman with history of diabetes, hypertension, hyperlipidemia, COPD, sleep apnea, who had been somewhat noncompliant with taking his medications at home. He came to the hospital primarily with an infection of the right elbow that was treated, went home and passed out at home. Came back to the hospital on this occasion following that episode with symptoms of feeling weak fatigued and tired. On his initial presentation here his lactic acid was 2.9, BNP was elevated, temperature was 102.5 and the white blood cell count elevated. Cardiology consultation was initially requested because of elevated BNP level. Patient does have acute on chronic diastolic congestive heart failure and his diuresed well on IV Lasix through the night last night. His blood pressure this morning 120/70 with a heart rate in the 80s, 95% on CPAP. Sodium 137, potassium 4.6, BUN 19 and creatinine 0.7. His weight is down 1 kg today. 05/25/2019 Patient seen and examined this morning, he diuresed well through the night last night and his weight is down significantly, overall his breathing is stable. He is complaining of some discomfort persisting in his right elbow. Blood pres sure 98/50 with a heart rate in the 60s, 92% on 6 L of oxygen. Sodium 135, potassium 4.5, BUN 27 and creatinine 0.8. 05/26/2019 She was seen and examined this morning, sitting up at the chair at bedside. Overall doing well. Currently on by mouth Lasix. Scheduled today to undergo midline placement. From our perspective he may be able to be discharged once cleared by primary. We'll make him a follow-up appointment in the office post discharge. Objective - Vital Signs Vital signs: Vital Signs Temp 98.4 F 05/26/19 11:51 Pulse 62 05/26/19 11:55 Resp 18 05/26/19 11:55 BP 110/55 05/26/19 11:51 Pulse Ox 94 L 05/26/19 11:51 Intake & Output 05/25/19 05/26/19 05/26/19 18:59 06:59 18:59 Intake Total 1302 Output Total 1925 850 Balance -623 -850 Intake: Oral 1302 Output: Urine 1925 850 Other: # Voids 1 - Exam PHYSICAL EXAMINATION: GENERAL: 63-year-old gentleman in no acute distress at the time of my examination HEENT: Head is atraumatic, normocephalic. Pupils equal, round. Sclera anicteric. Conjunctiva are clear. Mucous membranes of the mouth are moist. Neck is supple. There is no elevated jugular venous pressure. No carotid bruit is heard. HEART EXAMINATION: Heart S1, S2 normal. No murmur or gallop heard. CHEST EXAMINATION: Lungs reveal improvement in air entry bilaterally to the bases. ABDOMEN: Soft, nontender. Bowel sounds are heard. No organomegaly noted. EXTREMITIES: 2+ peripheral pulses with no evidence of peripheral edema and no calf tenderness noted. Patient does have a significantly swollen area to the right elbow NEUROLOGIC [patient is awake, alert and oriented 3 . - Labs CBC & Chem 7: 05/22/19 10:12 05/25/19 06:21 Labs: Abnormal Lab Results - Last 24 Hours (Table) 05/25/19 05/25/19 05/26/19 Range/Units 16:56 20:40 11:57 POC Glucose (mg/dL) 122 H 125 H 70 L (75-99) mg/dL Microbiology - Last 24 Hours (Table) 05/24/19 14:54 Gram Stain - Preliminary Elbow - Right Wound Culture - Preliminary Presumptive Staph aureus 05/22/19 12:05 Blood Culture - Preliminary Blood No Growth after 72 hours Assessment and Plan Plan: Assessment and plan #1 right elbow infected olecranon bursitis #2 acute on chronic diastolic congestive heart failure #3 hypertension #4 diabetes #5 hyperlipidemia #6 sleep apnea #7 COPD #8 nicotine dependence Plan From cardiology's perspective, we'll recommend to continue this patient on his current medications. He may be able to be discharged home to follow-up in the office post discharge. DNP note has been reviewed, I agree with a documented findings and plan of care. Patient was seen and examined.
[2019-05-26] MEDS: HYDROcodone/APAP 5-325MG 1 EACH TAB PO PRN ×2 (13:08→19:07)
--- NOTE | 2019-05-26 13:39 | PN ---
PROGRESS NOTE DATE OF SERVICE: 05/26/2019. REASON FOR FOLLOWUP: 1. Right elbow MSSA olecranon bursitis. 2. Pseudomonas UTI. INTERVAL HISTORY: The patient is currently afebrile. The patient has been breathing comfortably. Denies having any chest pain or any cough. No nausea, vomiting. No abdominal pain or any worsening pain to the right elbow area. PHYSICAL EXAMINATION: On examination, blood pressure 110/55 with a pulse of 62, temperature 98.4. He is 94% on 4 L nasal cannula. General description is an elderly male up in the chair in no distress. RESPIRATORY SYSTEM: Unlabored breathing, clear to auscultation anteriorly. HEART: S1, S2. Regular rate and rhythm. ABDOMEN: Soft, no tenderness. Right elbow still has significant inflammation though no drainage was noticed. LABS: No new labs have been obtained today. The elbow culture has been positive for MSSA. Urine with Pseudomonas aeruginosa. DIAGNOSTIC IMPRESSION AND PLAN: 1. Patient with right elbow septic olecranon bursitis. Culture positive for MSSA. The patient is currently on cefazolin 2 grams q.8 hours. We will try to get a Midline and continue with IV cefazolin 2 grams q.8 hours for at least 2 more weeks to finish course of therapy. 2. Pseudomonas urinary tract infection, adequately treated. Will discontinue Cipro on discharge. Continue with supportive care. MMODL / IJN: [id number] /
--- NOTE | 2019-05-26 16:11 | PN ---
PROGRESS NOTE CHIEF COMPLAINT: Congestive heart failure and MRSA abscess of the right elbow. HISTORY OF PRESENT ILLNESS: This gentleman is doing fairly well. He is still quite short of breath. He does feel it is improving, however. PHYSICAL EXAMINATION: He has rales and rhonchi scattered throughout with expiratory wheezing in both lung frazier. Cardiac exam is normal. Abdomen is soft, nontender. Dressing is dry on the elbow. IMPRESSION: 1. Acute congestive heart failure. 2. Chronic congestive heart failure. 3. Methicillin-resistant Staphylococcus aeruginosa abscess of the right elbow. PLAN: Continue with diuresis and management of his congestive heart failure while his elbow is being attended to by Orthopedics and Infectious Disease. MMODL / IJN: [id number] /
[2019-05-26 16:38] LABS: Glucose,Whole Blood 150 mg/dL (75-99)
[2019-05-26 21:06] LABS: Glucose,Whole Blood 179 mg/dL (75-99)
[2019-05-27] MEDS: HYDROcodone/APAP 5-325MG 1 EACH TAB PO PRN ×2 (00:27→12:20)
[2019-05-27 06:26] LABS: Glucose,Whole Blood 111 mg/dL (75-99)
[2019-05-27] MEDS: INSULIN ASPART (NovoLOG) 100 UNIT/ML VIAL SQ SCH ×2 (06:28→11:35)
[2019-05-27 06:45] LABS: Anisocytosis Slight; Basophils # (A) 0.1 k/uL (0-0.2); Basophils % (A) 1 %; Eosinophils # (A) 0.5 k/uL (0-0.7); Eosinophils % (A) 8 %; HCT 44.8 % (39.0-53.0); HGB 14.2 gm/dL (13.0-17.5); Hypochromasia Slight; Lymphocytes # (A) 1.2 k/uL (1.0-4.8); Lymphocytes % (A) 19 %; MCH 28.9 pg (25.0-35.0); MCHC 31.8 g/dL (31.0-37.0); Mean Platelet Volume 6.8; Monocytes # (A) 0.5 k/uL (0-1.0); Monocytes % (A) 8 %; Neutrophils # (A) 3.8 k/uL (1.3-7.7); Neutrophils % (A) 62 %; Platelet Count 197 k/uL (150-450); RBC 4.93 m/uL (4.30-5.90); RDW 17.3 % (11.5-15.5); WBC 6.2 k/uL (3.8-10.6)
[2019-05-27 06:55] LABS: MCV 90.8 fL (80.0-100.0)
[2019-05-27] MEDS: IPRATROPIUM 0.5 MG/2.5 ML NEBU INHALATION SCH ×3 (07:41→16:23)
[2019-05-27 07:42] LABS: African American GFR (CKD) >90 (>60 ml/min/1.73 sqM); Anion Gap 4 mmol/L; Blood Urea Nitrogen 21 mg/dL (9-20); C Reactive Protein 71.1 mg/L (<10.0); Calcium 8.4 mg/dL (8.4-10.2); Carbon Dioxide 34 mmol/L (22-30); Chloride 97 mmol/L (98-107); Glucose 116 mg/dL (74-99); Non-African American GFR(CKD) >90 (>60 ml/min/1.73 sqM); Potassium 4.8 mmol/L (3.5-5.1); Sodium 135 mmol/L (137-145)
[2019-05-27 09:56] VITALS: RESP 18
[2019-05-27] MEDS: METOPROLOL SUCCINATE (ER) 25 MG TAB.ER.24H PO SCH (09:56)
[2019-05-27] MEDS: ASPIRIN 81 MG PO SCH (09:56)
[2019-05-27] MEDS: LISINOPRIL 2.5 MG TAB PO SCH (09:56)
[2019-05-27] MEDS: PANTOPRAZOLE 40 MG TABLET PO SCH (09:57)
[2019-05-27] MEDS: CIPROFLOXACIN HCL 500 MG TAB PO SCH (09:57)
[2019-05-27] MEDS: FUROSEMIDE 20 MG TAB PO SCH (09:57)
[2019-05-27] MEDS: CITALOPRAM HYDROBROMIDE 20 MG TAB PO SCH (09:57)
[2019-05-27 11:41] LABS: Glucose,Whole Blood 124 mg/dL (75-99)
[2019-05-27 12:20] VITALS: BP 140/84; TEMP 98.1
--- NOTE | 2019-05-27 12:26 | PN ---
PROGRESS NOTE DATE OF SERVICE: 05/27/2019 REASON FOR FOLLOWUP: Right elbow MSSA olecranon bursitis. INTERVAL HISTORY: The patient is currently afebrile. The patient has been breathing comfortably. Denies having any chest pain or any cough. No abdominal pain. Pain to the right elbow is currently improved. No diarrhea. PHYSICAL EXAMINATION: Blood pressure is 134/63 with a pulse of 76, temperature 98.7. He is 94% on 4 L nasal cannula. General description is an elderly male up in the bed in no distress. RESPIRATORY SYSTEM: Unlabored breathing with decreased breath sounds at the base. HEART: S1, S2. Regular rate and rhythm. ABDOMEN: Soft. No tenderness. Right elbow is currently dressed up. No obvious drainage on the dressing. LABS: Hemoglobin is 14.2, white count 6.2. BUN of 21, creatinine 0.66. CRP 71.1. DIAGNOSTIC IMPRESSION AND PLAN: Patient with right elbow septic olecranon bursitis. Culture positive for MSSA. Patient at this time to continue with cefazolin 2 grams q.8 hours for 2 weeks in view of his extensive infection with weekly monitoring of CBC, BMP and CRP. Followup in the office in one week. Continue supportive care. MMODL / IJN: [id number] /
[2019-05-27 14:33] VITALS: BMI 23.1
--- NOTE | 2019-05-27 14:59 | XR ---
EXAMINATION TYPE: XR chest 2V DATE OF EXAM: 05/27/2019 COMPARISON: chest xray 05/22/19 HISTORY: CHF TECHNIQUE: Frontal and lateral views of the chest are obtained. FINDINGS: Pleural parenchymal changes are similar to prior exam. Heart size is unchanged. This tissu e is increased. No pneumothorax or pleural effusion. There are overlying cardiac leads. Prominent gian g volumes suggest COPD. Difficult to exclude basilar airspace disease. IMPRESSION: There are underlying chronic changes within the lungs, difficult to exclude superimposed airspace disease, congestive heart failure. Follow-up suggested.
[2019-05-27] MEDS: SODIUM CHLORIDE 0.9% 1,000 ML IV SCH (15:05)
[2019-05-27 16:29] VITALS: PULSE 78
[2019-05-27 16:59] LABS: Glucose,Whole Blood 102 mg/dL (75-99)
--- NOTE | 2019-05-28 00:39 | DS ---
DISCHARGE SUMMARY CHIEF COMPLAINT: Shortness of breath and infected elbow. HISTORY OF PRESENT ILLNESS AND PHYSICAL EXAM: Details of this man's history and physical can be found in the initial workup. LABORATORY STUDY: White he was in the hospital, he had laboratory studies, details of which can be found in the laboratory section of his chart. COURSE IN HOSPITAL: After admission, he was placed on bedrest, started on intravenous fluids and antibiotics. He was seen by Orthopedics and Infectious Disease and he was taken for resection of infected olecranon bursa of the right elbow. He did grow out MRSA. His congestive heart failure was treated. He was improved. He was doing well enough on the 1st. It was felt he could go home and he will go home on home care for his congestive heart failure in his right elbow. We will see him in the office in several days. FINAL DIAGNOSES: 1. Acute congestive heart failure. 2. Infected right elbow olecranon bursitis. OPERATIONS: Resection of infected bursa of the right elbow. CONSULTATIONS: Orthopedics and cardiology. He is improved. MMODL / MICHAELN: [id number] /
--- NOTE | 2019-06-01 00:12 | CDI ---
Documentation Clarification Form Date: 06/01/19 From: Giles Tran Phone: call [phone] Admit Date: 05/22/2019 12:56:00 PM Patient Name: Rajesh Alcazar Visit Number: [id number] Discharge Date: 05/27/2019 5:51:00 PM ATTENTION: The Clinical Documentation Specialists (CDI) and [facility] Coding Staff appreciate your assistance in clarifying documentation. Please respond to the clarification below the line at the bottom and electronically sign. The CDI & [facility] Coding staff will review the response and follow-up if needed. Please note: Queries are made part of the Legal Health Record. If you have any questions, please contact the author of this message via ITS. Dr. Tenzin Beltrán, The patient presented with the following septic bursitis,right elbow and CHF. History/Risk Factors: Septic bursitis Clinical Indicators: WBC 9.7 Lactic acid: 2.9 Blood cultures: negative and wound culture positive for MSSA. Vitals signs on admission: Pulse 131 RR 21 Treatment: Broad spectrum Antibiotics and Iv fluids In 05/23 Dr. Violet Moralez consult note and 05/23 Juan Henderson progress note mentioned Sepsis, later on no documentation about sepsis. In your professional opinion, please clarify if these findings signify one of the following conditions, whether the condition is POA, and cause, if known: Condition Sepsis Ruled out Sepsis Other, please specify Unable to determine MTDD
--- NOTE | 2019-06-03 13:18 | MISC ---
MISCELLANOUS REPORT QUERY: Sepsis. MMODL / IJN: [id number] /
== END 2019-05-27 17:51 | disposition home health service (06) | DRG 853 ==
LOC: EC 09:47 → 3SCARD 12:56
PROVIDERS: ADMIT Family Medicine; ATTEND Family Medicine
PROC: 5A09557 Assistance with Respiratory Ventilation, Greater than 96 Consecutive Hours, Continuous Positive Airway Pressure (ICD-10-PCS; 2019-05-22)
PROC: 0MB30ZZ Excision of Right Elbow Bursa and Ligament, Open Approach (ICD-10-PCS; principal; 2019-05-24 07:30)
DX: A41.9 Sepsis, unspecified organism (principal); I50.33 Acute on chronic diastolic (congestive) heart failure; E87.2 Acidosis; N39.0 Urinary tract infection, site not specified; M71.121 Other infective bursitis, right elbow; I11.0 Hypertensive heart disease with heart failure; B95.62 Methicillin resistant Staphylococcus aureus infection as the cause of diseases classified elsewhere; R31.9 Hematuria, unspecified; R09.02 Hypoxemia; E83.51 Hypocalcemia; B96.5 Pseudomonas (aeruginosa) (mallei) (pseudomallei) as the cause of diseases classified elsewhere; W18.30XA Fall on same level, unspecified, initial encounter; Y92.012 Bathroom of single-family (private) house as the place of occurrence of the external cause; J44.9 Chronic obstructive pulmonary disease, unspecified; E78.5 Hyperlipidemia, unspecified; E11.9 Type 2 diabetes mellitus without complications; G47.30 Sleep apnea, unspecified; M19.90 Unspecified osteoarthritis, unspecified site; F41.9 Anxiety disorder, unspecified; F17.200 Nicotine dependence, unspecified, uncomplicated; H54.7 Unspecified visual loss; F32.9 Major depressive disorder, single episode, unspecified; F17.210 Nicotine dependence, cigarettes, uncomplicated; Z96.1 Presence of intraocular lens; Z91.14 Patient's other noncompliance with medication regimen; Z88.0 Allergy status to penicillin; Z79.899 Other long term (current) drug therapy; Z79.84 Long term (current) use of oral hypoglycemic drugs; Z79.82 Long term (current) use of aspirin; Z79.51 Long term (current) use of inhaled steroids; Z80.1 Family history of malignant neoplasm of trachea, bronchus and lung; Z91.19 Patient's noncompliance with other medical treatment and regimen; Z98.42 Cataract extraction status, left eye; Z98.41 Cataract extraction status, right eye
CPT/HCPCS: 20605; 36410; 36415; 70450; 71046; 72125; 76937; 80048; 80053; 80202; 81001; 82565; 83036; 83605; 83735; 83880; 84484; 85025; 85610; 86140; 87040; 87070; 87075; 87077; 87086; 87186; 87205; 89050; 93005; 93306; 94640; 94660; 94760; 96361; 96365; 96367; 96375; 99284; 99285

== ENCOUNTER → 2019-11-03 | Outpatient (CLI) | payer BC, MEDICARE ==
[2019-11-03 13:25] LABS: African American GFR (CKD) >90 (>60 ml/min/1.73 sqM); Blood Urea Nitrogen 32 mg/dL (9-20); Non-African American GFR(CKD) >90 (>60 ml/min/1.73 sqM)
--- NOTE | 2019-11-03 15:00 | US ---
EXAMINATION TYPE: US kidneys/renal and bladder DATE OF EXAM: 11/03/2019 COMPARISON: NONE CLINICAL HISTORY: R10.84 Generalized abd pain R31.9 Hematuria. Hematuria EXAM MEASUREMENTS: Right Kidney: 10.5 x 4.9 x 5.2 cm Left Kidney: 10.9 x 5.0 x 4.7 cm Right Kidney: no hydronephrosis, 0.7cm exophytic cystic area Left Kidney: no hydronephrosis or masses seen Bladder: irregular wall with multiple mass like areas along posterior wall with largest measuring 1.9 x 1.1 x 2.2cm Bilateral Jets seen: not seen IMPRESSION: 1. Irregular urinary bladder wall suspicious for underlying masses. 2. Tiny cortical renal cyst right kidney
--- NOTE | 2019-11-03 16:22 | CT ---
EXAMINATION TYPE: CT abdomen w con DATE OF EXAM: 11/03/2019 COMPARISON: NONE HISTORY: 63-year-old male Hematuria. TECHNIQUE: Contiguous axial scanning of the abdomen following administration of 100 ml Isovue 300 IV contrast. Delayed images through the kidneys and coronal/sagittal reconstructions performed. CT DLP: 891 mGycm Automated exposure control for dose reduction was used. FINDINGS: Heart upper limits of normal in size without pericardial effusion. Emphysematous change in the visualized lower lungs with curvilinear scarring at the right base. Some additional interstitial scarring at the right base. No pleural effusion. No focal liver lesion or biliary ductal dilatation. Portal venous system is patent. Gallbladder, right adrenal gland, spleen, and pancreas appear within normal limits. Punctate nonobstructive 2 mm right renal calculus. Symmetric uptake and excretion of contrast from noemi th kidneys. Tiny less than 5 mm hypodensities scattered within both kidneys too small for accurate CT characterization, likely tiny cortical cysts. Mild diffuse thickening of the left adrenal gland without discrete nodularity. No dilated small bowel, free fluid, or free air. No mesenteric or retroperitoneal lymphadenopathy. Left-sided colonic diverticulosis. Aortobiiliac endovascular stent graft. [place] sac caliber is 5.2 cm. This can be compared to availabl e outside priors. The stented right common iliac artery is ectatic at 1.6 cm. Pelvis not imaged. Bones: Facet arthropathy lower dorsal spine. Grade 1 anterolisthesis L4-L5. IMPRESSION: 1. PUNCTATE 2 MM NONOBSTRUCTIVE RIGHT RENAL CALCULUS. 2. THERE ARE TINY LESS THAN 5 MM HYPODENSITIES SCATTERED WITHIN THE KIDNEYS, MORE APPARENT ON THE DEL AYED KIDNEY IMAGES DUE TO SMALL SIZE, SUGGESTING TINY CORTICAL CYSTS. 3. LEFT-SIDED COLONIC DIVERTICULOSIS. MODERATE STOOL BURDEN. 4. AORTOBIILIAC ENDOVASCULAR STENT GRAFT. STENTED [place] SAC MEASURES 5.2 CM. THIS CAN BE COMPARED WI TH PATIENT'S OUTSIDE PRIORS TO DETERMINE STABILITY. 5. PELVIS NOT IMAGED. 6. COPD AND BIBASILAR SCARRING.
== END | disposition home or self-care (01) ==
LOC: RADCTMAIN 12:33
PROVIDERS: ATTEND Family Medicine
DX: N28.1 Cyst of kidney, acquired (principal); N32.89 Other specified disorders of bladder; N20.0 Calculus of kidney; K57.30 Diverticulosis of large intestine without perforation or abscess without bleeding
CPT/HCPCS: 82565; 84520; 76770; 74160; 36415; Q9967 ×2

== ENCOUNTER 2020-02-22 19:12 | Emergency (ER) | payer MEDICARE ==
[2020-02-22 19:19] VITALS: BP 132/75; PULSE 86; RESP 24; TEMP 99.7
--- NOTE | 2020-02-22 20:05 | ED ---
Male Urogenital HPI - General Chief complaint: Urogenital Stated complaint: unable to urinate, COPD Time Seen by Provider: 02/22/20 19:20 Source: patient, RN notes reviewed Mode of arrival: wheelchair Limitations: no limitations - History of Present Illness Initial comments: This a 64-year-old male presents emergency Department chief complaint of lower abdominal pain, bladder spasms. Patient had surgery last week by for bladder cancer. Patient states he has a Valles catheter in place. He states his been passing clots but states that over the last few hours she's not had any urine output states she's having pressure. Patient states that upon entering the emergency department his symptoms resolved as he started passing urine. He has no abdominal pain denies any flank pain. Patient does have a history of COPD states he normally SATS around 89-90 and wears home oxygen. Patient states that he has no increased dyspnea denies any chest pain. Patient states he has no complaints now that his urine started draining. - Related Data Home Medications Medication Instructions Recorded Confirmed Atorvastatin [Lipitor] 80 mg PO HS 09/11/17 05/22/19 Furosemide [Lasix] 20 mg PO DAILY 09/11/17 05/22/19 Lisinopril [Zestril] 2.5 mg PO DAILY 09/11/17 05/22/19 metFORMIN HCL [Glucophage] 500 mg PO BID 09/11/17 05/22/19 Albuterol Inhaler (Mhu) [Ventolin 2 puff INHALATION RT-Q6H PRN 05/22/19 05/22/19 Hfa Inhaler (Mhu)] Aspirin EC [Ecotrin] 325 mg PO DAILY 05/22/19 05/22/19 Tiotropium [place] [Spiriva] 1 cap INHALATION RT-DAILY 05/22/19 05/22/19 Previous Rx's Medication Instructions Recorded Ciprofloxacin HCl [Cipro] 500 mg PO BID #20 tab 05/27/19 Citalopram Hydrobromide [CeleXA] 40 mg PO DAILY #30 tab 05/27/19 Metoprolol Succinate (ER) [Toprol 12.5 mg PO DAILY #60 tab.er.24h 05/27/19 XL] Allergies Allergy/AdvReac Type Severity Reaction Status Date / Time Penicillins Allergy Anaphylaxis Verified 02/22/20 19:19 Review of Systems ROS Statement: Those systems with pertinent positive or pertinent negative responses have been documented in the HPI. ROS Other: All systems not noted in ROS Statement are negative. Past Medical History Past Medical History: COPD, Diabetes Mellitus, Hyperlipidemia, Hypertension, Osteoarthritis (OA), Sleep Apnea/CPAP/BIPAP Additional Past Medical History / Comment(s): C PAP, BLOOD IN STOOL ,RETAINS FLUID IN AM OF PROCEDURE History of Any Multi-Drug Resistant Organisms: None Reported Past Surgical History: Appendectomy Additional Past Surgical History / Comment(s): CATARACT SURGERY WITH LENS IMPLANT-BILATERAL,EXPLORATORY LAPAROTOMY,AORTIC ANEURYSM REPAIR Past Anesthesia/Blood Transfusion Reactions: No Reported Reaction Past Psychological History: Anxiety Smoking Status: Current every day smoker Past Alcohol Use History: None Reported Past Drug Use History: Marijuana - Past Family History Mother Family Medical History: Cancer Additional Family Medical History / Comment(s): LUNG CANCER Father Family Medical History: Cancer Additional Family Medical History / Comment(s): LUNG CANCER General Exam Limitations: no limitations General appearance: alert, in no apparent distress Head exam: Present: atraumatic, normocephalic, normal inspection ENT exam: Present: normal exam, mucous membranes moist Neck exam: Present: normal inspection. Absent: tenderness, meningismus, lymphadenopathy Respiratory exam: Present: wheezes. Absent: normal lung sounds bilaterally, respiratory distress (Patient is in no signs of distress), rales, rhonchi, stridor Cardiovascular Exam: Present: regular rate, normal rhythm, normal heart sounds. Absent: systolic murmur, diastolic murmur, rubs, gallop, clicks GI/Abdominal exam: Present: soft, normal bowel sounds. Absent: distended, tenderness, guarding, rebound, rigid exam: Absent: normal inspection (Valles catheter in place) Back exam: Absent: CVA tenderness (R) Neurological exam: Present: alert, oriented X3, CN II-XII intact Course Vital Signs 02/22/20 19:14 Temperature 99.7 F H Pulse Rate 86 Respiratory 24 Rate Blood Pressure 132/75 O2 Sat by Pulse 90 L Oximetry Medical Decision Making - Medical Decision Making 64-year-old male presented for low abdominal pain secondary to fully catheter not draining. Patient catheter spontaneously started draining does note to have gross hematuria. Patient states he has no complaints at this time and wants to leave. I did express my concerns that he has a temp of 99.7. I recommended lab work, urinalysis. Patient states she has an appointment with his urologist in the morning and first to just follow-up and return for any worsening symptoms. Patient has a pulse ox of 90 which is normal for him. He has no complaints of dyspnea he has severe COPD. Patient will be discharged with very strict return parameters. Disposition Clinical Impression: Hematuria, Bladder spasms Disposition: HOME SELF-CARE Condition: Stable Instructions (If sedation given, give patient instructions): Hematuria (ED) Additional Instructions: Please return to the Emergency Department if symptoms worsen or any other concerns. Is patient prescribed a controlled substance at d/c from ED?: No Referrals: Tenzin Beltrán MD [Primary Care Provider] - 1-2 days Time of Disposition: 20:05
[2020-02-22 21:24] LABS: Appearance,Urine Cloudy (Clear); Bilirubin,Urine Negative (Negative); Blood,Urine Large (Negative); Color,Urine Red; Glucose,Urine (UA) Negative (Negative); Ketones,Urine Negative (Negative); Leukocyte Esterase,Urine Large (Negative); Mucus,Urine Rare /hpf; Nitrite,Urine Negative (Negative); Protein,Urine 2+ (Negative); RBC,Urine >182 /hpf (0-5); Urobilinogen,Urine <2.0 mg/dL (<2.0); WBC,Urine 61 /hpf (0-5)
== END 2020-02-22 20:26 | disposition home or self-care (01) ==
LOC: EC 19:12
DX: N32.89 Other specified disorders of bladder (principal); R31.0 Gross hematuria; J44.9 Chronic obstructive pulmonary disease, unspecified; E11.9 Type 2 diabetes mellitus without complications; E78.5 Hyperlipidemia, unspecified; I10 Essential (primary) hypertension; G47.30 Sleep apnea, unspecified; F17.200 Nicotine dependence, unspecified, uncomplicated; Z79.82 Long term (current) use of aspirin; Z79.84 Long term (current) use of oral hypoglycemic drugs; Z79.899 Other long term (current) drug therapy; Z88.0 Allergy status to penicillin; Z99.89 Dependence on other enabling machines and devices
CPT/HCPCS: 81001; 87086; 99284